=== PATIENT | female | born 1955 | race Caucasian/White ===

== ENCOUNTER 2018-10-19 15:57 | Inpatient (IN) | payer BC, OTHER ==
[2018-10-19] MEDS ORDERED: IPRATROPIUM-ALBUTEROL 3 ML NEB INHALATION STA (16:22)
[2018-10-19] MEDS ORDERED: SODIUM CHLORIDE 0.9% 1,000 ML IV STA (16:22)
[2018-10-19] MEDS ORDERED: methylPREDNISolone SOD SUCCI 125 MG/2 ML VIAL IV STA (16:22)
[2018-10-19] MEDS ORDERED: LEVOFLOXACIN 750MG-D5W PMX 750 MG in DEXTROSE/WATER 1 150ML.BAG IVPB STA ×2 (16:22→18:29)
[2018-10-19 17:14] LABS: Basophils % (A) 0 %; Eosinophils % (A) 0 %; HCT 41.2 % (34.0-46.0); HGB 13.4 gm/dL (11.4-16.0); Lymphocytes # (A) 0.8 k/uL (1.0-4.8); Lymphocytes % (A) 7 %; MCH 31.5 pg (25.0-35.0); MCHC 32.6 g/dL (31.0-37.0); MCV 96.7 fL (80.0-100.0); Mean Platelet Volume 9.1; Monocytes # (A) 0.7 k/uL (0-1.0); Monocytes % (A) 6 %; Neutrophils % (A) 85 %; Platelet Count 157 k/uL (150-450); RBC 4.26 m/uL (3.80-5.40); RDW 13.1 % (11.5-15.5); WBC 10.6 k/uL (3.8-10.6)
[2018-10-19 17:20] LABS: ALT 30 U/L (9-52); AST 20 U/L (14-36); Albumin 3.4 g/dL (3.5-5.0); Alkaline Phosphatase 60 U/L (38-126); Anion Gap 9 mmol/L; Blood Urea Nitrogen 21 mg/dL (7-17); Calcium 8.9 mg/dL (8.4-10.2); Carbon Dioxide 22 mmol/L (22-30); Chloride 106 mmol/L (98-107); Glucose 109 mg/dL (74-99); Magnesium 1.9 mg/dL (1.6-2.3); Potassium 4.1 mmol/L (3.5-5.1); Sodium 137 mmol/L (137-145); Total Bilirubin 0.7 mg/dL (0.2-1.3); Total Protein 6.2 g/dL (6.3-8.2)
[2018-10-19 17:21] LABS: Partial Thromboplastin Time 28.4 sec (22.0-30.0); Prothrombin Time 10.7 sec (9.0-12.0)
--- NOTE | 2018-10-19 17:58 | ED ---
SOB HPI - General Chief Complaint: Shortness of Breath Stated Complaint: poss pneumonia Source: patient, family Mode of arrival: wheelchair Limitations: no limitations - History of Present Illness Initial Comments: This 63-year-old white female presents with a complaint of some shortness of breath. She states that she's had a cough with yellowish production. She apparently had a temperature of 99.8 and the ER but they deny any other fevers. He does have a history of COPD and smokes at least a half a pack a day still. She apparently went to the primary care physician's office and her pulse ox was 78 percent and they sent her to the hospital for further evaluation. Her pulse ox is low at 83% upon arrival. She is denying any chest pain or leg pain. There is no history of DVT or PE. She does relate a previous cardiac history with open heart surgery in 2007. It sounds like she did have a pleural effusion which was drained shortly thereafter. She otherwise denies any known congestive heart failure. She denies any extremity swelling. The shortness of breath is worse with exertion. - Related Data Home Medications Medication Instructions Recorded Confirmed Aspirin 81 mg PO DAILY 11/24/14 10/19/18 Cholecalciferol [Vitamin D3] 400 unit PO DAILY 11/24/14 10/19/18 Lisinopril [Prinivil] 20 mg PO BID 11/24/14 10/19/18 Simvastatin [Zocor] 40 mg PO HS 11/24/14 10/19/18 Carvedilol 25 mg PO BID 10/19/18 10/19/18 amLODIPine [Norvasc] 10 mg PO DAILY 10/19/18 10/19/18 guaiFENesin [Mucinex] 600 mg PO BID PRN 10/19/18 10/19/18 Allergies Allergy/AdvReac Type Severity Reaction Status Date / Time No Known Allergies Allergy Verified 10/19/18 16:40 Review of Systems ROS Statement: Those systems with pertinent positive or pertinent negative responses have been documented in the HPI. ROS Other: All systems not noted in ROS Statement are negative. Past Medical History Past Medical History: Hyperlipidemia, Hypertension, Myocardial Infarction ([place]) Last Myocardial Infarction Date:: 2007 History of Any Multi-Drug Resistant Organisms: None Reported Past Surgical History: Coronary Bypass/CABG Past Anesthesia/Blood Transfusion Reactions: No Reported Reaction Past Psychological History: No Psychological Hx Reported Smoking Status: Current every day smoker Past Alcohol Use History: None Reported Past Drug Use History: None Reported General Exam - General Exam Comments Initial Comments: GENERAL: The patient is well nourished and well hydrated. VITAL SIGNS: Heart rate, blood pressure, respiratory rate reviewed as recorded in nurse's notes. EYES: Pupils are round and reactive. Extraocular movements are intact. No conjunctival / lid redness or swelling. ENT: No external evidence of injury, swelling, or ecchymosis. Airway is patent. Throat is clear. NECK: Nontender. No swelling or evidence of injury. No subcutaneous emphysema. Trachea is midline. No thyroid mass. HEART: Regular rate and rhythm. Good peripheral pulses. LUNGS/CHEST: Wheezing noted bilaterally. No ecchymosis, subcutaneous emphysema, or tenderness. ABDOMEN: Abdomen soft without tenderness. No palpable masses or organomegaly. No peritoneal signs. No abdominal wall swelling or ecchymosis. EXTREMITIES: No extremity tenderness. Normal muscle tone and function. No thoracolumbar tenderness. NEUROLOGIC: Sensation is grossly intact. Cranial nerve exam reveals face is symmetrical, tongue is midline, speech is clear. SKIN: No abrasions or ecchymosis is noted. No induration or masses noted. PSYCHIATRIC: Alert and oriented. Appropriate behavior and judgment. Limitations: no limitations Course Vital Signs 10/19/18 10/19/18 10/19/18 16:09 17:18 17:31 Temperature 99.0 F Pulse Rate 79 73 72 Respiratory 22 22 Rate Blood Pressure 106/69 O2 Sat by Pulse 83 L Oximetry 10/19/18 17:37 Temperature Pulse Rate 76 Respiratory 22 Rate Blood Pressure 145/67 O2 Sat by Pulse 93 L Oximetry Medical Decision Making - Medical Decision Making The patient was seen and examined. All diagnostics were reviewed. An IV is established and she is hydrated. She also receives Levaquin and slight Medrol intravenously. She receives multiple breathing treatments. The EKG shows a normal sinus rhythm at a rate of 73. Premature atrial complexes noted. There is evidence of incomplete left bundle branch block. No acute ST-T wave changes otherwise noted. The LA intervals 150, QRS duration is 108, and the QTC intervals 440. The laboratories reviewed and does show elevation of the BNP consistent with possible congestive heart failure. The white blood cell count is normal. The patient also had a chest x-ray which shows signs of congestive heart failure but they cannot rule out interstitial pneumonia. She receives aspirin, Nitropaste, and Lasix. It is felt as though she likely does have a degree of congestive heart failure. She also likely does have COPD and bronchitis. The case is discussed with and he is agreeable with admission. - Lab Data Result diagrams: 10/19/18 16:47 10/19/18 16:47 Lab Results 10/19/18 10/19/18 10/19/18 Range/Units 16:47 16:47 16:47 WBC 10.6 (3.8-10.6) k/uL RBC 4.26 (3.80-5.40) m/uL Hgb 13.4 (11.4-16.0) gm/dL Hct 41.2 (34.0-46.0) % MCV 96.7 (80.0-100.0) fL MCH 31.5 (25.0-35.0) pg MCHC 32.6 (31.0-37.0) g/dL RDW 13.1 (11.5-15.5) % Plt Count 157 (150-450) k/uL Neutrophils % 85 % Lymphocytes % 7 % Monocytes % 6 % Eosinophils % 0 % Basophils % 0 % Neutrophils # 9.0 H (1.3-7.7) k/uL Lymphocytes # 0.8 L (1.0-4.8) k/uL Monocytes # 0.7 (0-1.0) k/uL Eosinophils # 0.0 (0-0.7) k/uL Basophils # 0.0 (0-0.2) k/uL PT (9.0-12.0) sec INR (<1.2) APTT (22.0-30.0) sec Sodium 137 (137-145) mmol/L Potassium 4.1 (3.5-5.1) mmol/L Chloride 106 (98-107) mmol/L Carbon Dioxide 22 (22-30) mmol/L Anion Gap 9 mmol/L BUN 21 H (7-17) mg/dL Creatinine 0.62 (0.52-1.04) mg/dL Est GFR (CKD-EPI)AfAm >90 (>60 ml/min/1.73 sqM) Est GFR (CKD-EPI)NonAf >90 (>60 ml/min/1.73 sqM) Glucose 109 H (74-99) mg/dL Calcium 8.9 (8.4-10.2) mg/dL Magnesium 1.9 (1.6-2.3) mg/dL Total Bilirubin 0.7 (0.2-1.3) mg/dL AST 20 (14-36) U/L ALT 30 (9-52) U/L Alkaline Phosphatase 60 (38-126) U/L Troponin I (0.000-0.034) ng/mL NT-Pro-B Natriuret Pep 2310 pg/mL Total Protein 6.2 L (6.3-8.2) g/dL Albumin 3.4 L (3.5-5.0) g/dL 10/19/18 10/19/18 Range/Units 16:47 16:47 WBC (3.8-10.6) k/uL RBC (3.80-5.40) m/uL Hgb (11.4-16.0) gm/dL Hct (34.0-46.0) % MCV (80.0-100.0) fL MCH (25.0-35.0) pg MCHC (31.0-37.0) g/dL RDW (11.5-15.5) % Plt Count (150-450) k/uL Neutrophils % % Lymphocytes % % Monocytes % % Eosinophils % % Basophils % % Neutrophils # (1.3-7.7) k/uL Lymphocytes # (1.0-4.8) k/uL Monocytes # (0-1.0) k/uL Eosinophils # (0-0.7) k/uL Basophils # (0-0.2) k/uL PT 10.7 (9.0-12.0) sec INR 1.0 (<1.2) APTT 28.4 (22.0-30.0) sec Sodium (137-145) mmol/L Potassium (3.5-5.1) mmol/L Chloride (98-107) mmol/L Carbon Dioxide (22-30) mmol/L Anion Gap mmol/L BUN (7-17) mg/dL Creatinine (0.52-1.04) mg/dL Est GFR (CKD-EPI)AfAm (>60 ml/min/1.73 sqM) Est GFR (CKD-EPI)NonAf (>60 ml/min/1.73 sqM) Glucose (74-99) mg/dL Calcium (8.4-10.2) mg/dL Magnesium (1.6-2.3) mg/dL Total Bilirubin (0.2-1.3) mg/dL AST (14-36) U/L ALT (9-52) U/L Alkaline Phosphatase (38-126) U/L Troponin I 0.016 (0.000-0.034) ng/mL NT-Pro-B Natriuret Pep pg/mL Total Protein (6.3-8.2) g/dL Albumin (3.5-5.0) g/dL Disposition Clinical Impression: Acute exacerbation of chronic obstructive airways disease, Acute respiratory failure with hypoxia, Dyspnea, Congestive heart failure, Bronchitis Disposition: ADMITTED IP TO THIS HOSP Condition: Fair Is patient prescribed a controlled substance at d/c from ED?: No Time of Disposition: 18:25 Decision Date: 10/19/18 Decision Time: 18:25
--- NOTE | 2018-10-19 18:01 | XR ---
EXAMINATION TYPE: XR chest 2V DATE OF EXAM: 10/19/2018 COMPARISON: 11/01/2011 HISTORY: Short of breath TECHNIQUE: Frontal and lateral views of the chest are obtained. FINDINGS: There is coarsening of the lung markings. Heart is enlarged. There are sternal wires. Ther e is valve prosthesis. Bony thorax is intact. There is mild pulmonary congestion. There is no definit e pleural effusion. IMPRESSION: There is probably new heart failure compared to old exam. Interstitial pneumonia is poss ible.
[2018-10-19] MEDS ORDERED: FUROSEMIDE 10 MG/ML 4 ML VIAL IV STA (18:18)
[2018-10-19] MEDS ORDERED: NITROGLYCERIN OINT 1 INCH/GM PACKET TOPICAL STA (18:19)
[2018-10-19] MEDS ORDERED: ASPIRIN 81 MG PO STA (18:19)
[2018-10-19] MEDS ORDERED: guaiFENesin 600 MG TABLET.ER PO PRN (18:30)
[2018-10-19] MEDS ORDERED: ALBUTEROL NEBULIZED 2.5 MG/3 ML INHALATION STA (18:32)
--- NOTE | 2018-10-19 18:58 | P.HPIM ---
History of Present Illness H&P Date: 10/19/18 Chief Complaint: COPD exacerbation, CHF exacerbation 63-year-old female with PMH of CHF, hypertension, hyperlipidemia presents to the ED for shortness of breath. Patient reports a four-day history of cough productive of yellow sputum, rhinorrhea and nasal congestion along with shortness of breath and wheezing. today she went to her PCP clinic and was noted to have an O2 saturation of 70% prompting staff to send the patient to the ED. Patient reports that the symptoms have been progressively getting worse. Patient states that she is usually able to walk 7 blocks without difficulty but now cannot even walk 4 blocks without stopping to catch her breath. She also complains of midsternal chest pain that is aggravated with deep inspiration. Patient reports 4 day history of nonbloody diarrhea. Of note, patient reports a history of open heart surgery with valve replacement in 2007 at [facility]. Patient reports smoking 10-15 cigarettes daily for the past 55 years. She denies any orthopnea or lower extremity edema. Patient denies any headache, nausea, vomiting, fever, chills, palpitations, changes in urination. No changes in appetite or weight. Patient denies dizziness, numbness/weakness/tingling of the extremities. In the ED, O2 saturation was 83% on room air. CBC was within normal limits. Coagulation panel was negative. CMP showed a BUN of 21, glucose of 109. Troponin was 0.016. BNP was 2310 with the chest x-ray showing probable new heart failure or possible interstitial pneumonia. Patient is admitted for hypoxia, treatment of COPD and CHF exacerbation with pulmonology and cardiology on board. Review of Systems All systems: negative Past Medical History Past Medical History: Hyperlipidemia, Hypertension, Myocardial Infarction ([place]) Last Myocardial Infarction Date:: 2007 History of Any Multi-Drug Resistant Organisms: None Reported Past Surgical History: Coronary Bypass/CABG Past Anesthesia/Blood Transfusion Reactions: No Reported Reaction Past Psychological History: No Psychological Hx Reported Smoking Status: Current every day smoker Past Alcohol Use History: None Reported Past Drug Use History: None Reported Medications and Allergies Home Medications Medication Instructions Recorded Confirmed Type Aspirin 81 mg PO DAILY 11/24/14 10/19/18 History Cholecalciferol [Vitamin D3] 400 unit PO DAILY 11/24/14 10/19/18 History Lisinopril [Prinivil] 20 mg PO BID 11/24/14 10/19/18 History Simvastatin [Zocor] 40 mg PO HS 11/24/14 10/19/18 History Carvedilol 25 mg PO BID 10/19/18 10/19/18 History amLODIPine [Norvasc] 10 mg PO DAILY 10/19/18 10/19/18 History guaiFENesin [Mucinex] 600 mg PO BID PRN 10/19/18 10/19/18 History Allergies Allergy/AdvReac Type Severity Reaction Status Date / Time No Known Allergies Allergy Verified 10/19/18 16:40 Physical Exam Vitals: Vital Signs Temp Pulse Resp BP Pulse Ox 10/19/18 17:37 76 22 145/67 93 L 10/19/18 17:31 72 22 10/19/18 17:18 73 10/19/18 16:09 99.0 F 79 22 106/69 83 L Intake and Output 10/19/18 10/19/18 10/19/18 06:59 14:59 22:59 Other: Weight 68.946 kg General: [non toxic], [no distress], [appears at stated age] Derm: [warm], [dry] Head: [atraumatic], [normocephalic], [symmetric] Eyes: [EOMI], [no lid lag], [anicteric sclera] Mouth: [no lip lesion], [mucus membranes moist] Cardiovascular: [S1S2 reg], [no murmur], [positive posterior tibial pulse bilateral], Lungs: [Diffuse wheezing bilaterally with crackles at the bases] , [no accessory muscle use] Abdominal: [soft], [ nontender to palpation], [no guarding], [no appreciable organomegaly] Ext: [no gross muscle atrophy], [no edema], [no contractures] Neuro: [ CN II-XI grossly intact], [no focal neuro deficits] Psych: [Alert], [oriented], [appropriate affect] Results CBC & Chem 7: 10/19/18 16:47 10/19/18 16:47 Labs: Abnormal Lab Results - Last 24 Hours (Table) 10/19/18 10/19/18 Range/Units 16:47 16:47 Neutrophils # 9.0 H (1.3-7.7) k/uL Lymphocytes # 0.8 L (1.0-4.8) k/uL BUN 21 H (7-17) mg/dL Glucose 109 H (74-99) mg/dL Total Protein 6.2 L (6.3-8.2) g/dL Albumin 3.4 L (3.5-5.0) g/dL Thrombosis Risk Factor Assmnt - Choose All That Apply Any of the Below Risk Factors Present?: Yes Each Factor Represents 1 point: Abnormal pulmonary function (COPD), Obesity (BMI >25) Other Risk Factors: Yes Each Risk Factor Represents 2 Points: Age 61-74 years Thrombosis Risk Factor Assessment Total Risk Factor Score: 4 Thrombosis Risk Factor Assessment Level: Moderate Risk Assessment and Plan Assessment: Assessment and Plan 1. COPD exacerbation 2. CHF exacerbation 3. Chest pain 4. Hypertension 5. Hyperlipidemia 6. DVT prophylaxis 1. Never been diagnosed. Start DuoNeb 4 times a day scheduled and as needed for shortness of breath and wheezing. Continue Solu-Medrol 60 mg IV every 6 hours. O2 per nasal cannula to maintain an O2 saturation greater than 92%. Started on levofloxacin IV for concerns of pneumonia. Will follow pulmonology consult. Follow influenza PCR. 2. Patient reports seeing Dr. Saha for CHF. She does not know her EF. BNP 2310 with chest x-ray showing concerns for CHF. Start diuresis with Lasix 40 mg IV twice a day. Start Coreg and lisinopril.strict intake and output take. Daily weights. telemetry monitoring. Follow echocardiogram results. Follow cardiology consultation. 3. Pleuritic in nature, likely not ACS. Troponin 0.016. Trend 2 Trop/EKG to rule out ACS. Telemetry monitoring. Follow cardiology consultation. 4. BP 145/67. Continue Coreg 25 mg by mouth twice a day. Continue lisinopril 20 mg by mouth twice a day. Monitor vitals, adjust medications as necessary. 5. Continue Simvastatin. 6. Lovenox. Patient admitted for dyspnea. Concerns for CHF and COPD exacerbation. Pulmonology and Cardiology consulted.
[2018-10-19] MEDS: IPRATROPIUM-ALBUTEROL 3 ML NEB INHALATION SCH (21:38)
[2018-10-19] MEDS: ENOXAPARIN 40 MG/0.4 ML SYRINGE SQ SCH (23:19)
[2018-10-19] MEDS: ATORVASTATIN 20 MG TAB PO SCH (23:27)
[2018-10-19] MEDS: NITROGLYCERIN OINT 1 INCH/GM PACKET TOPICAL SCH (23:28)
[2018-10-19] MEDS: LISINOPRIL 20 MG TAB PO SCH (23:28)
[2018-10-19] MEDS: CARVEDILOL 12.5 MG TAB PO SCH (23:28)
[2018-10-19] MEDS: methylPREDNISolone SOD SUCCI 125 MG/2 ML VIAL IV SCH (23:29)
[2018-10-20] MEDS: IPRATROPIUM-ALBUTEROL 3 ML NEB INHALATION SCH ×7 (00:08→23:11)
[2018-10-20 00:11] VITALS: BMI 27.0
[2018-10-20 04:59] LABS: HCT 38.6 % (34.0-46.0); HGB 12.8 gm/dL (11.4-16.0); MCH 32.1 pg (25.0-35.0); MCHC 33.2 g/dL (31.0-37.0); MCV 96.7 fL (80.0-100.0); Mean Platelet Volume 8.8; Platelet Count 151 k/uL (150-450); RDW 13.3 % (11.5-15.5); WBC 7.8 k/uL (3.8-10.6)
[2018-10-20 05:16] LABS: Anion Gap 7 mmol/L; Blood Urea Nitrogen 31 mg/dL (7-17); Carbon Dioxide 21 mmol/L (22-30); Chloride 108 mmol/L (98-107); Glucose 150 mg/dL (74-99); Magnesium 2.1 mg/dL (1.6-2.3); Potassium 4.1 mmol/L (3.5-5.1); Sodium 136 mmol/L (137-145)
[2018-10-20] MEDS ORDERED: FUROSEMIDE 10 MG/ML 4 ML VIAL IV SCH (06:00)
[2018-10-20 06:06] LABS: Glucose,Whole Blood 141 mg/dL (75-99)
[2018-10-20] MEDS: methylPREDNISolone SOD SUCCI 125 MG/2 ML VIAL IV SCH ×4 (06:25→23:06)
[2018-10-20] MEDS: CARVEDILOL 12.5 MG TAB PO SCH ×2 (06:25→20:12)
--- NOTE | 2018-10-20 08:55 | P.CRDCN ---
History of Present Illness History of present illness: This is Dr. Saha dictating a consult on this patient The patient was interviewed and examined by me IMPRESSION / ASSESSMENT: 63-year-old female presenting with cough shortness of breath and bronchitis-like symptoms Experienced chest discomfort while pushing her luggage cart Normal troponins No definite ECG changes Current smoker Hypertension Dyslipidemia PLAN: Twelve-lead ECG Treat bronchitis Obtain last stress test from the office Smoking cessation HPI Patient presented with increasing cough expectoration shortness of breath She had chest discomfort while pushing her luggage cart but without any ECG changes and 3 normal troponins She's had a workup for coronary artery disease in the office and I will get the reports ROS: No fever chills or rigors, no cough, phlegm or expectoration, no nausea, vomiting or diarrhea, no hematuria, dysuria, no musculoskeletal complaints, no strokes or seizures, no skin lesions. EXAMINATION: Blood pressure 99/55 milligrams of mercury pulse rate in the 70s and 60s afebrile Breath sounds are reduced bilaterally with rhonchorous breath sounds bilaterally some crackles at both bases with reduced breath sounds bilaterally Normal heart sounds S1 and S2 are soft no murmurs Abdomen soft Extremities warm no edema She appears a little short of breath REVIEW OF LABS, ECG & MEDICAL DATA Hematocrit 38.6, alert lites normal, BUN 31, creatinine 0.78 Normal troponins TSH 0.99 Past Medical History Past Medical History: Heart Failure, COPD, Hyperlipidemia, Hypertension, Myocardial Infarction ([place]) Last Myocardial Infarction Date:: 2007 History of Any Multi-Drug Resistant Organisms: None Reported Past Surgical History: Coronary Bypass/CABG Past Anesthesia/Blood Transfusion Reactions: No Reported Reaction Past Psychological History: No Psychological Hx Reported Smoking Status: Current every day smoker Past Alcohol Use History: None Reported Past Drug Use History: None Reported Medications and Allergies Home Medications Medication Instructions Recorded Confirmed Type Aspirin 81 mg PO DAILY 11/24/14 10/19/18 History Cholecalciferol [Vitamin D3] 400 unit PO DAILY 11/24/14 10/19/18 History Lisinopril [Prinivil] 20 mg PO BID 11/24/14 10/19/18 History Simvastatin [Zocor] 40 mg PO HS 11/24/14 10/19/18 History Carvedilol 25 mg PO BID 10/19/18 10/19/18 History amLODIPine [Norvasc] 10 mg PO DAILY 10/19/18 10/19/18 History guaiFENesin [Mucinex] 600 mg PO BID PRN 10/19/18 10/19/18 History Allergies Allergy/AdvReac Type Severity Reaction Status Date / Time No Known Allergies Allergy Verified 10/19/18 16:40 Physical Exam Vitals: Vital Signs Temp Pulse Pulse Resp BP BP Pulse Ox 10/20/18 08:37 66 10/20/18 08:26 70 10/20/18 04:00 97.6 F 57 L 18 99/55 92 L 10/20/18 00:25 68 10/20/18 00:09 68 10/20/18 00:00 97.9 F 69 18 115/56 94 L 10/19/18 23:17 98.1 F 70 16 122/55 94 L 10/19/18 23:00 95 10/19/18 20:24 75 10/19/18 20:16 74 10/19/18 19:08 97.5 F L 75 22 144/91 95 10/19/18 17:37 76 22 145/67 93 L 10/19/18 17:31 72 22 10/19/18 17:18 73 10/19/18 16:09 99.0 F 79 22 106/69 83 L Intake and Output 10/19/18 10/20/18 10/20/18 22:59 06:59 14:59 Output Total 550 250 300 Balance -550 -250 -300 Output: Urine 550 250 300 Other: Weight 68.946 kg 67.1 kg Results 10/20/18 04:23 10/20/18 04:23 Cardiac Enzymes 10/19/18 10/19/18 10/19/18 Range/Units 16:47 16:47 22:46 AST 20 (14-36) U/L Troponin I 0.016 0.012 (0.000-0.034) ng/mL 10/20/18 Range/Units 04:23 AST (14-36) U/L Troponin I <0.012 (0.000-0.034) ng/mL Coagulation 10/19/18 Range/Units 16:47 PT 10.7 (9.0-12.0) sec APTT 28.4 (22.0-30.0) sec CBC 04/02/19 04/03/19 Range/Units 16:47 04:23 WBC 10.6 7.8 (3.8-10.6) k/uL RBC 4.26 4.00 (3.80-5.40) m/uL Hgb 13.4 12.8 (11.4-16.0) gm/dL Hct 41.2 38.6 (34.0-46.0) % Plt Count 157 151 (150-450) k/uL Comprehensive Metabolic Panel 10/19/18 10/20/18 Range/Units 16:47 04:23 Sodium 137 136 L (137-145) mmol/L Potassium 4.1 4.1 (3.5-5.1) mmol/L Chloride 106 108 H (98-107) mmol/L Carbon Dioxide 22 21 L (22-30) mmol/L BUN 21 H 31 H (7-17) mg/dL Creatinine 0.62 0.78 (0.52-1.04) mg/dL Glucose 109 H 150 H (74-99) mg/dL Calcium 8.9 9.0 (8.4-10.2) mg/dL AST 20 (14-36) U/L ALT 30 (9-52) U/L Alkaline Phosphatase 60 (38-126) U/L Total Protein 6.2 L (6.3-8.2) g/dL Albumin 3.4 L (3.5-5.0) g/dL Current Medications Generic Name Dose Route Start Last Admin Trade Name Freq PRN Reason Stop Dose Admin Albuterol/Ipratropium 3 ml 10/19/18 20:00 10/20/18 08:24 Duoneb 0.5 Mg-3 Mg/3 Ml Soln INHALATION 3 ml RT-Q4H [facility] Administration Amlodipine Besylate 10 mg 10/20/18 09:00 Norvasc PO DAILY [facility] Aspirin 81 mg 10/20/18 09:00 Aspirin PO DAILY [facility] Atorvastatin Calcium 20 mg 10/19/18 21:00 10/19/18 23:27 Lipitor PO 20 mg HS [facility] Administration Carvedilol 25 mg 10/19/18 21:00 10/20/18 06:25 Coreg PO 25 mg BID-W/MEALS [facility] Administration Cholecalciferol 400 unit 10/20/18 12:00 Vitamin D3 PO DAILY@1200 [facility] Enoxaparin Sodium 40 mg 10/19/18 18:30 10/19/18 23:19 Lovenox SQ Not Given DAILY [facility] Guaifenesin 600 mg 10/19/18 18:30 10/20/18 00:18 Mucinex PO 600 mg BID PRN Administration Cold/Congestion Lisinopril 20 mg 10/19/18 21:00 10/19/18 23:28 Zestril PO 20 mg BID BRANDON Administration Methylprednisolone Sodium Succinate 60 mg 10/20/18 00:00 10/20/18 06:25 Solu-Medrol IV 60 mg Q6HR [facility] Administration Nitroglycerin 1 inch 10/19/18 22:00 10/19/18 23:28 Nitro-Bid Oint TOPICAL 1 inch QID [facility] Administration Intake and Output 10/19/18 10/20/18 10/20/18 22:59 06:59 14:59 Output Total 550 250 300 Balance -550 -250 -300 Output: Urine 550 250 300 Other: Weight 68.946 kg 67.1 kg 10/20/18 04:23 10/20/18 04:23
[2018-10-20] MEDS ORDERED: ASPIRIN 325 MG TAB PO SCH (09:00)
[2018-10-20] MEDS: LISINOPRIL 20 MG TAB PO SCH ×2 (09:46→20:27)
[2018-10-20] MEDS: ENOXAPARIN 40 MG/0.4 ML SYRINGE SQ SCH (09:46)
[2018-10-20] MEDS: ASPIRIN 81 MG PO SCH (09:46)
[2018-10-20] MEDS: amLODIPine 10 MG TAB PO SCH (09:47)
[2018-10-20] MEDS: NITROGLYCERIN OINT 1 INCH/GM PACKET TOPICAL SCH ×4 (09:47→20:12)
--- NOTE | 2018-10-20 11:11 | ECHOF ---
Referral Reason:Heart Failure MEASUREMENTS -------- HEIGHT: 157.5 cm WEIGHT: 66.7 kg BP: IVSd: 1.4 cm (0.6 - 1.1) LVIDd: 3.8 cm (3.9 - 5.3) LVPWd: 1.3 cm (0.6 - 1.1) IVSs: 1.5 cm LVIDs: 3.4 cm LVPWs: 1.6 cm LA Diam: 5.1 cm (2.7 - 3.8) LAESV Index (A-L): 51.71 ml/m MV EXCURSION: 16.659 mm (> 18.000) MV EF SLOPE: 38 mm/s (70 - 150) EPSS: 0.3 cm MV E Brennan: 1.29 m/s MV DecT: 336 ms MV A Brennan: 1.13 m/s MV E/A Ratio: 1.14 RAP: 5.00 mmHg RVSP: 33.03 mmHg FINDINGS -------- Sinus rhythm. This was a technically adequate study. The left ventricular size is normal. There is moderate concentric left ventricular hypertrophy. O verall left ventricular systolic function is mildly impaired with, an EF between 45 - 50 %. Inferio r basal Hypokinesis Basal septal hypokinesis The right ventricle is normal in size. The left atrial size is normal. The right atrial size is normal. There is mild aortic valve sclerosis. There is no evidence of aortic regurgitation. Mild mitral annular calcification present. Mild mitral regurgitation is present. Mild tricuspid regurgitation present. There is no evidence of pulmonary hypertension. The right v entricular systolic pressure, as measured by Doppler, is 33.03mmHg. There is no pulmonic regurgitation present. The aortic root size is normal. There is no pericardial effusion. CONCLUSIONS -------- 1. The left ventricular size is normal. 2. There is moderate concentric left ventricular hypertrophy. 3. Overall left ventricular systolic function is mildly impaired with, an EF between 45 - 50 %. 4. Inferior basal Hypokinesis 5. Basal septal hypokinesis 6. The right ventricle is normal in size. 7. The left atrial size is normal. 8. The right atrial size is normal. 9. There is mild aortic valve sclerosis. 10. Mild mitral annular calcification present. 11. Mild mitral regurgitation is present. 12. Mild tricuspid regurgitation present. 13. There is no evidence of pulmonary hypertension. 14. The right ventricular systolic pressure, as measured by Doppler, is 33.03mmHg. 15. There is no pulmonic regurgitation present. 16. The aortic root size is normal. 17. There is no pericardial effusion. STRATEGIC ANALYST: Viviane Hudson RDCS
[2018-10-20 12:10] LABS: Glucose,Whole Blood 139 mg/dL (75-99)
[2018-10-20] MEDS: CHOLECALCIFEROL 400 UNIT TAB PO SCH (12:24)
--- NOTE | 2018-10-20 13:46 | P.PN ---
Subjective Progress Note Date: 10/20/18 Principal diagnosis: COPD exacerbation, CHF exacerbation Patient was seen and examined. No acute events overnight. Patient reports great improvement in her breathing since admission. States that she is 75% back to baseline. She denies any chest pain or palpitations. No nausea or vomiting. No fever or chills. Objective - Vital Signs Vital signs: Vital Signs Temp 97.3 F L 10/20/18 08:30 Pulse 68 10/20/18 12:03 Resp 18 10/20/18 08:30 BP 103/63 10/20/18 08:30 Pulse Ox 97 10/20/18 08:30 Intake & Output 10/19/18 10/20/18 10/20/18 18:59 06:59 18:59 Output Total 800 300 Balance -800 -300 Weight 68.946 kg 67.1 kg Output: Urine 800 300 - Exam General: [non toxic], [no distress], [appears at stated age] Derm: [warm], [dry] Head: [atraumatic], [normocephalic], [symmetric] Eyes: [EOMI], [no lid lag], [anicteric sclera] Mouth: [no lip lesion], [mucus membranes moist] Cardiovascular: [S1S2 reg], [no murmur], [positive posterior tibial pulse bilateral], Lungs: [Diffuse wheezing bilaterally with crackles at the bases, improved from yesterday] , [no accessory muscle use] Abdominal: [soft], [ nontender to palpation], [no guarding], [no appreciable organomegaly] Ext: [no gross muscle atrophy], [no edema], [no contractures] Neuro: [no focal neuro deficits] Psych: [Alert], [oriented], [appropriate affect] - Labs CBC & Chem 7: 10/20/18 04:23 10/20/18 04:23 Labs: Abnormal Lab Results - Last 24 Hours (Table) 10/19/18 10/19/18 10/20/18 Range/Units 16:47 16:47 04:23 Neutrophils # 9.0 H (1.3-7.7) k/uL Lymphocytes # 0.8 L (1.0-4.8) k/uL Sodium 136 L (137-145) mmol/L Chloride 108 H (98-107) mmol/L Carbon Dioxide 21 L (22-30) mmol/L BUN 21 H 31 H (7-17) mg/dL Glucose 109 H 150 H (74-99) mg/dL POC Glucose (mg/dL) (75-99) mg/dL Total Protein 6.2 L (6.3-8.2) g/dL Albumin 3.4 L (3.5-5.0) g/dL 10/20/18 10/20/18 Range/Units 06:04 11:57 Neutrophils # (1.3-7.7) k/uL Lymphocytes # (1.0-4.8) k/uL Sodium (137-145) mmol/L Chloride (98-107) mmol/L Carbon Dioxide (22-30) mmol/L BUN (7-17) mg/dL Glucose (74-99) mg/dL POC Glucose (mg/dL) 141 H 139 H (75-99) mg/dL Total Protein (6.3-8.2) g/dL Albumin (3.5-5.0) g/dL Assessment and Plan Assessment: Assessment and Plan 1. COPD exacerbation 2. CHF exacerbation 3. Chest pain 4. Hypertension 5. Hyperlipidemia 6. DVT prophylaxis 1. Never been diagnosed. Start DuoNeb 4 times a day scheduled and as needed for shortness of breath and wheezing. Continue Solu-Medrol 60 mg IV every 6 hours. O2 per nasal cannula to maintain an O2 saturation greater than 92%. Started on levofloxacin IV for concerns of pneumonia. Will follow pulmonology consult. Influenza PCR negative. 2. Patient reports seeing Dr. Saha for CHF. She does not know her EF. BNP 2310 with chest x-ray showing concerns for CHF. Start diuresis with Lasix 40 mg IV twice a day. Start Coreg and lisinopril. Strict intake and output take. May ly weights. telemetry monitoring. Echocardiogram shows EF 45-50% with hypokinetic wall motion. Cardiology consulted, recent outpatient stress done, will obtain records. 3. Pleuritic in nature, likely not ACS. Troponin 0.016, 0.012, less than 0.012 with EKG showing sinus rhythm with PAC. ACS ruled out. Telemetry monitoring. Follow cardiology consultation. 4. BP 122/55. Continue Coreg 25 mg by mouth twice a day. Continue lisinopril 20 mg by mouth twice a day. Monitor vitals, adjust medications as necessary. 5. Continue Simvastatin. 6. Lovenox. Patient admitted for dyspnea. Concerns for CHF and COPD exacerbation. Pulmonology and Cardiology consulted. Patient is pending clinical improvement. Likely DC in 1-2 days.
--- NOTE | 2018-10-20 15:41 | XR ---
EXAMINATION TYPE: XR chest 2V DATE OF EXAM: 10/20/2018 COMPARISON: Prior chest x-ray 10/19/2018 HISTORY: Shortness of breath TECHNIQUE: Frontal and lateral views of the chest are obtained. FINDINGS: Patient is post median sternotomy and mitral valve replacement. The heart is enlarged. Int erstitium is increased. Strand-like areas of increased attenuation may reflect atelectatic changes or scarring. Aorta is dense. There may be pleural calcifications present. Pulmonary vascularity and hil a not significantly changed. No evident pneumothorax or pleural effusion. There are overlying cardiac leads. IMPRESSION: Suspect some improvement in aeration as compared to prior exam. Possible pleural calcifi cation, cannot exclude upper lobe mass on the right. Additional follow-up recommended.
[2018-10-20 16:34] LABS: Glucose,Whole Blood 156 mg/dL (75-99)
[2018-10-20] MEDS: ATORVASTATIN 20 MG TAB PO SCH (20:27)
[2018-10-20 20:49] LABS: Glucose,Whole Blood 196 mg/dL (75-99)
[2018-10-20] MEDS: INSULIN ASPART (NovoLOG) 100 UNIT/ML VIAL SQ SCH (21:26)
[2018-10-21] MEDS: IPRATROPIUM-ALBUTEROL 3 ML NEB INHALATION SCH ×4 (03:24→15:52)
[2018-10-21 05:56] LABS: Glucose,Whole Blood 176 mg/dL (75-99)
[2018-10-21] MEDS: methylPREDNISolone SOD SUCCI 125 MG/2 ML VIAL IV SCH ×2 (06:16→11:29)
[2018-10-21] MEDS: INSULIN ASPART (NovoLOG) 100 UNIT/ML VIAL SQ SCH ×2 (06:16→12:15)
[2018-10-21] MEDS: CARVEDILOL 12.5 MG TAB PO SCH (06:16)
[2018-10-21 07:54] VITALS: TEMP 97.8
[2018-10-21] MEDS: LISINOPRIL 20 MG TAB PO SCH (09:04)
[2018-10-21] MEDS: amLODIPine 10 MG TAB PO SCH (09:04)
[2018-10-21] MEDS: ASPIRIN 81 MG PO SCH (09:04)
[2018-10-21] MEDS: ENOXAPARIN 40 MG/0.4 ML SYRINGE SQ SCH (09:07)
[2018-10-21] MEDS: NITROGLYCERIN OINT 1 INCH/GM PACKET TOPICAL SCH ×2 (09:14→12:36)
[2018-10-21 11:27] LABS: Glucose,Whole Blood 144 mg/dL (75-99)
[2018-10-21] MEDS: CHOLECALCIFEROL 400 UNIT TAB PO SCH (11:40)
[2018-10-21 12:07] VITALS: BP 106/55; PULSE 80
[2018-10-21 12:50] VITALS: RESP 18
--- NOTE | 2018-10-21 14:08 | P.DS ---
Providers Date of admission: 10/19/18 18:25 Expected date of discharge: 10/21/18 Attending physician: Peterson Dowell MD Consults: 10/19/18 18:25 Consult Physician Routine Consulting Provider: Cody Dick Consult Reason/Comments: chf Do you want consulting provider notified?: Yes Primary care physician: Ander Tobar [facility] Course: 63-year-old female with PMH of CHF, hypertension, hyperlipidemia presents to the ED for shortness of breath. Patient reports a four-day history of cough productive of yellow sputum, rhinorrhea and nasal congestion along with shortness of breath and wheezing. today she went to her PCP clinic and was noted to have an O2 saturation of 70% prompting staff to send the patient to the ED. Patient reports that the symptoms have been progressively getting worse. Patient states that she is usually able to walk 7 blocks without difficulty but now cannot even walk 4 blocks without stopping to catch her breath. She also complains of midsternal chest pain that is aggravated with deep inspiration. Patient reports 4 day history of nonbloody diarrhea. Of note, patient reports a history of open heart surgery with valve replacement in 2007 at [facility]. Patient reports smoking 10-15 cigarettes daily for the past 55 years. She denies any orthopnea or lower extremity edema. Patient denies any headache, nausea, vomiting, fever, chills, palpitations, changes in urination. No changes in appetite or weight. Patient denies dizziness, numbness/weakness/tingling of the extremities. In the ED, O2 saturation was 83% on room air. CBC was within normal limits. Coagulation panel was negative. CMP showed a BUN of 21, glucose of 109. Troponin was 0.016. BNP was 2310 with the chest x-ray showing probable new heart failure or possible interstitial pneumonia. Patient is admitted for hypoxia, treatment of COPD and CHF exacerbation with pulmonology and cardiology on board. with regard to her COPD exacerbation, patient was started on DuoNeb 4 times a day scheduled and as needed for shortness of breath and wheezing. She was initially started on Solu-Medrol IV which was transitioned to prednisone on discharge. She was given O2 per nasal cannula to maintain O2 saturation greater than 92%. There is initial concerns for pneumonia for which she was started on levofloxacin IV. Influenza PCR was negative. There was also some concerns for CHF that was seen on chest x-ray. BNP was 2310 with chest x-ray showing concerns for CHF. She was initially diuresed with Lasix 40 mg IV twice a day. Her home medications of Coreg and lisinopril was resumed. Echocardiogram was done which showed an EF of 45-50% with some hypokinetic wall motion. patient had chest pain which was pleuritic in nature. Her troponin was 0.016, 0.012, less than 0.012 with EKG showing sinus rhythm with PACs. Acute coronary syndrome was ruled out. Cardiology was consulted and recommended obtaining her last stress test. It was reported that the patient had a history of mitral valve repair and CABG to the proximal and distal LAD, saphenous vein graft to the intermediate coronary artery and saphenous vein graft to the RCA in 2007. Patient was seen and examined prior to discharge. No acute events overnight. Patient reports complete resolution of her dyspnea. Patient states that her breathing is back to baseline. She continues to complain of cough but now it is dry in nature. She denies any chest pain, shortness of breath or palpitations. She denies any dizziness, nausea or vomiting, fever or chills. Patient is requesting to go home today. General: [non toxic], [no distress], [appears at stated age] Derm: [warm], [dry] Head: [atraumatic], [normocephalic], [symmetric] Eyes: [EOMI], [no lid lag], [anicteric sclera] Mouth: [no lip lesion], [mucus membranes moist] Cardiovascular: [S1S2 reg], [no murmur], [positive posterior tibial pulse bilateral], Lungs: [clear to auscultation bilaterally with scattered mild end expiratory wheezes, improved from yesterday] , [no accessory muscle use] Abdominal: [soft], [ nontender to palpation], [no guarding], [no appreciable organomegaly] Ext: [no gross muscle atrophy], [no edema], [no contractures] Neuro: [no focal neuro deficits] Psych: [Alert], [oriented], [appropriate affect] Assessment and Plan 1. COPD exacerbation 2. CHF exacerbation 3. Chest pain 4. Hypertension 5. Hyperlipidemia 6. DVT prophylaxis 1. Never been diagnosed. Start DuoNeb 4 times a day scheduled and as needed for shortness of breath and wheezing. Transition Solu-Medrol to Predisone by mouth. O2 per nasal cannula to maintain an O2 saturation greater than 92%. Started on levofloxacin IV for concerns of pneumonia. Will follow pulmonology consult. Influenza PCR negative. 6 minute walk test pending. 2. Patient reports seeing Dr. Saha for CHF. She does not know her EF. BNP 2310 with chest x-ray showing concerns for CHF. Transition from Lasix IV to by mouth. Start Coreg and lisinopril. Strict intake and output take. Daily weights. telemetry monitoring. Echocardiogram shows EF 45-50% with hypokinetic wall motion. Cardiology consulted, recent outpatient stress done, will obtain records. 3. Pleuritic in nature, likely not ACS. Troponin 0.016, 0.012, less than 0.012 with EKG showing sinus rhythm with PAC. ACS ruled out. Telemetry monitoring. Follow cardiology consultation. 4. BP 106/55. Continue Coreg 25 mg by mouth twice a day. Continue lisinopril 20 mg by mouth twice a day. Monitor vitals, adjust medications as necessary. 5. Continue Simvastatin. 6. Lovenox. Patient admitted for dyspnea. Concerns for CHF and COPD exacerbation. Pulmonology and Cardiology consulted. DC today with close follow-up with pulmonology and cardiology. This complex discharge took greater than 30 minutes. Pertinent Studies: chest x-ray, echocardiogram Patient Condition at Discharge: Fair Plan - Discharge Summary Discharge Rx Participant: No New Discharge Prescriptions: New Aspirin 81 mg PO DAILY chew Furosemide [Lasix] 40 mg PO DAILY #30 tablet predniSONE 50 mg PO DAILY #3 tab Continue Cholecalciferol [Vitamin D3] 400 unit PO DAILY Simvastatin [Zocor] 40 mg PO HS Aspirin 81 mg PO DAILY Lisinopril [Prinivil] 20 mg PO BID amLODIPine [Norvasc] 10 mg PO DAILY Carvedilol 25 mg PO BID guaiFENesin [Mucinex] 600 mg PO BID PRN PRN Reason: Gi Upset Discharge Medication List Aspirin 81 mg PO DAILY 11/24/14 [History] Cholecalciferol [Vitamin D3] 400 unit PO DAILY 11/24/14 [History] Lisinopril [Prinivil] 20 mg PO BID 11/24/14 [History] Simvastatin [Zocor] 40 mg PO HS 11/24/14 [History] Carvedilol 25 mg PO BID 10/19/18 [History] amLODIPine [Norvasc] 10 mg PO DAILY 10/19/18 [History] guaiFENesin [Mucinex] 600 mg PO BID PRN 10/19/18 [History] Aspirin 81 mg PO DAILY chew 10/21/18 [Rx] Furosemide [Lasix] 40 mg PO DAILY #30 tablet 10/21/18 [Rx] predniSONE 50 mg PO DAILY #3 tab 10/21/18 [Rx] Follow up Appointment(s)/Referral(s): [facility] [Provider Group] - 1 Week Ander Pacheco MD [Primary Care Provider] - 10/27/18 1:15 pm (Thursday) Aron Benoit DO [Doctor of Osteopathic Medicine] - 1 Week Cody Dick MD [STAFF PHYSICIAN] - 1 Week Activity/Diet/Wound Care/Special Instructions: follow-up with PCP within 1-2 days of discharge. Take all medications as advised. Follow-up with pulmonology with in 1 week of discharge. Follow-up with cardiology within 1 week of discharge. Discharge Disposition: HOME SELF-CARE
--- NOTE | 2018-10-22 09:57 | CDI ---
Documentation Clarification Form Date: 10/22/2018 From: Melissa Reginald Danica Curtis, [employer] Hours-8:30 am & 5 pm MLeo Admit Date: 10/19/2018 6:25:00 PM Patient Name: Cristel Arenas Visit Number: [id number] Discharge Date: 10/21/2018 4:00:00 PM ATTENTION: The Clinical Documentation Specialists (CDI) and [facility] Coding Staff appreciate your assistance in clarifying documentation. Please respond to the clarification below the line at the bottom and electronically sign. The CDI & [facility] Coding staff will review the response and follow-up if needed. Please note: Queries are made part of the Legal Health Record. If you have any questions, please contact the author of this message via ITS. Dr. Alexander Saha CHF/heart failure are documented in the H&P,Your consult (under Past medical history), ED note, prg notes, and Dischrg Summary. History/Risk Factors: COPD, CAD, hx IN, CABG, heart valve prosthesis Clinical Indicators: SOB is worse on exertion VS/Pulse OX: P-79, R-22, BP-106/69, O2 sat-83 BNP: 2310 Echocardiogram Results: left ventricular systolic function is mildly impaired, EF between 45-50% Chest X Ray: There is probably new heart failure compared to old exam. Treatment: 4/2- IV Lasix 40 mg once, 4/3-IV Lasix 40 mg Q 12H, DC'd - Lasix 40 mg po daily In your professional opinion, can you please clarify the acuity and type of CHF if known? TYPE Systolic Heart Failure Diastolic Heart Failure Systolic & Diastolic Heart Failure ACUITY Acute Chronic Acute on Chronic Heart Failure Unable to Determine Other, please specify MTDD
== END 2018-10-21 16:00 | disposition home or self-care (01) | DRG 190 ==
LOC: EC 15:57 → 3SCARD 18:25
PROVIDERS: ADMIT Family Medicine; ATTEND Family Medicine
DX: J44.1 Chronic obstructive pulmonary disease with (acute) exacerbation (principal); J96.01 Acute respiratory failure with hypoxia; I50.22 Chronic systolic (congestive) heart failure; I11.0 Hypertensive heart disease with heart failure; I44.7 Left bundle-branch block, unspecified; I49.1 Atrial premature depolarization; E78.5 Hyperlipidemia, unspecified; I25.10 Atherosclerotic heart disease of native coronary artery without angina pectoris; I34.0 Nonrheumatic mitral (valve) insufficiency; I25.2 Old myocardial infarction; F17.210 Nicotine dependence, cigarettes, uncomplicated; Z71.6 Tobacco abuse counseling; Z79.82 Long term (current) use of aspirin; Z79.899 Other long term (current) drug therapy; Z95.2 Presence of prosthetic heart valve; Z95.1 Presence of aortocoronary bypass graft
CPT/HCPCS: 36415; 71046; 80048; 80053; 83735; 83880; 84443; 84484; 85025; 85027; 85610; 85730; 87040; 87502; 93005; 93306; 94640; 94760; 96365; 96375; 99285

== ENCOUNTER 2019-08-28 11:06 | Inpatient (IN) | payer BC ==
[2019-08-28] MEDS ORDERED: SODIUM CHLORIDE 0.9% 500 ML 500 ML IV STA (11:20)
--- NOTE | 2019-08-28 11:23 | ED ---
General Adult HPI - General Chief complaint: Neuro Symptoms/Deficit Stated complaint: rt leg numbness, neuro issues Time Seen by Provider: 08/28/19 11:13 Source: patient, RN notes reviewed, old records reviewed Mode of arrival: ambulatory Limitations: no limitations - History of Present Illness Initial comments: 64-year-old female presenting with 1 hour history of right leg weakness and numbness. Patient states that at approximately 10:15 AM she developed weakness, lacrimation and numbness in her right leg. She had taken an aspirin at home and waited approximately 30 minutes with some improvement in symptoms prior to deciding to come to the emergency department. She states for the past 2 days she's been somewhat dizzy. No headache. No chest pain. No focal numbness or weakness until 1 hour prior to arrival. She states the symptoms have nearly completely resolved and she feels some residual numbness in this leg. She is a current smoker, history of CAD currently on lisinopril, Coreg, and Zocor, she has been prescribed an aspirin but takes this sporadically. No abdominal pain. No cough. No dyspnea. No chest pain. - Related Data Home Medications Medication Instructions Recorded Confirmed Aspirin 81 mg PO DAILY 11/24/14 10/19/18 Cholecalciferol [Vitamin D3] 400 unit PO DAILY 11/24/14 10/19/18 Lisinopril [Prinivil] 20 mg PO BID 11/24/14 10/19/18 Simvastatin [Zocor] 40 mg PO HS 11/24/14 10/19/18 Carvedilol 25 mg PO BID 10/19/18 10/19/18 amLODIPine [Norvasc] 10 mg PO DAILY 10/19/18 10/19/18 guaiFENesin [Mucinex] 600 mg PO BID PRN 10/19/18 10/19/18 Previous Rx's Medication Instructions Recorded Aspirin 81 mg PO DAILY chew 10/21/18 Furosemide [Lasix] 40 mg PO DAILY #30 tablet 10/21/18 predniSONE 50 mg PO DAILY #3 tab 10/21/18 Allergies Allergy/AdvReac Type Severity Reaction Status Date / Time No Known Allergies Allergy Verified 08/28/19 11:12 Review of Systems ROS Statement: Those systems with pertinent positive or pertinent negative responses have been documented in the HPI. ROS Other: All systems not noted in ROS Statement are negative. Past Medical History Past Medical History: Heart Failure, COPD, Hyperlipidemia, Hypertension, Myocardial Infarction (CT) Last Myocardial Infarction Date:: 2007 History of Any Multi-Drug Resistant Organisms: None Reported Past Surgical History: Coronary Bypass/CABG Past Anesthesia/Blood Transfusion Reactions: No Reported Reaction Past Psychological History: No Psychological Hx Reported Smoking Status: Current every day smoker Past Alcohol Use History: None Reported Past Drug Use History: None Reported General Exam Limitations: no limitations General appearance: alert, in no apparent distress Head exam: Present: atraumatic, normocephalic Eye exam: Present: normal appearance, PERRL ENT exam: Present: normal exam Neck exam: Present: normal inspection. Absent: tenderness, meningismus Respiratory exam: Present: normal lung sounds bilaterally. Absent: respiratory distress, wheezes Cardiovascular Exam: Present: regular rate, normal rhythm GI/Abdominal exam: Present: soft. Absent: distended, tenderness, guarding Extremities exam: Present: normal inspection, normal capillary refill, other (Distal pulses 2+, symmetric). Absent: pedal edema Neurological exam: Present: alert, oriented X3, CN II-XII intact, normal gait, motor sensory deficit (Slight drift in the right lower extremity, decreased sensation, NIH of 2) Psychiatric exam: Present: normal affect, normal mood Skin exam: Present: warm, dry, intact. Absent: cyanosis, diaphoretic Course Vital Signs 08/28/19 08/28/19 08/28/19 11:09 11:24 11:40 Temperature 97.6 F 97.6 F 97.6 F Pulse Rate 53 L 55 L 53 L Respiratory 18 18 18 Rate Blood Pressure 142/71 142/71 113/65 O2 Sat by Pulse 98 100 98 Oximetry 08/28/19 08/28/19 08/28/19 11:48 11:55 12:00 Temperature 97.6 F 97.6 F Pulse Rate 57 L 57 L Respiratory 18 18 18 Rate Blood Pressure 129/66 113/65 O2 Sat by Pulse 98 98 98 Oximetry 08/28/19 08/28/19 12:15 12:30 Temperature Pulse Rate 60 62 Respiratory 18 17 Rate Blood Pressure 129/66 109/36 O2 Sat by Pulse 97 98 Oximetry - Reevaluation(s) Reevaluation #1: 08/28/19 115 Case discussed with stroke neurologist Dr. Sauceda, patient is not a TPA candidate secondary to low NIH and improving symptoms, not a thrombectomy candidate. EKG Findings - EKG Comments: EKG Findings:: EKG: Sinus bradycardia, with PVC, intraventricular conduction delay with QRS 128, ventricular rate of 51, AL interval 174, QRS duration 128, QTC 442, similar compared to previous EKG in October 2018 Medical Decision Making - Medical Decision Making 64-year-old female presenting with right leg weakness and numbness. NIH is initially 2, this does improve with return to baseline, no reported numbness or weakness at 12:[address] brain which is negative for intracranial hemorrhage or mass effect. 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 Chest x-ray is negative for acute cardiopulmonary disease, no pneumothorax, no focal pneumonia. She has a normal CBC, normal CMP. She is given an aspirin emergency department she will be admit roldan for further CVA and TIA evaluation. Case is discussed with Dr. Langley who will accept admission. Neurology placed on consult. - Lab Data Result diagrams: 08/28/19 11:30 08/28/19 11:30 Lab Results 08/28/19 08/28/19 08/28/19 Range/Units 11:30 11:30 11:30 WBC 6.9 (3.8-10.6) k/uL RBC 4.97 (3.80-5.40) m/uL Hgb 15.9 (11.4-16.0) gm/dL Hct 47.5 H (34.0-46.0) % MCV 95.6 (80.0-100.0) fL MCH 32.0 (25.0-35.0) pg MCHC 33.5 (31.0-37.0) g/dL RDW 12.8 (11.5-15.5) % Plt Count 200 (150-450) k/uL Neutrophils % 65 % Lymphocytes % 23 % Monocytes % 4 % Eosinophils % 5 % Basophils % 2 % Neutrophils # 4.5 (1.3-7.7) k/uL Lymphocytes # 1.6 (1.0-4.8) k/uL Monocytes # 0.3 (0-1.0) k/uL Eosinophils # 0.3 (0-0.7) k/uL Basophils # 0.2 (0-0.2) k/uL PT 10.0 (9.0-12.0) sec INR 1.0 (<1.2) APTT 26.1 (22.0-30.0) sec Sodium (137-145) mmol/L Potassium (3.5-5.1) mmol/L Chloride (98-107) mmol/L Carbon Dioxide (22-30) mmol/L Anion Gap mmol/L BUN (7-17) mg/dL Creatinine (0.52-1.04) mg/dL Est GFR (CKD-EPI)AfAm (>60 ml/min/1.73 sqM) Est GFR (CKD-EPI)NonAf (>60 ml/min/1.73 sqM) Glucose (74-99) mg/dL Calcium (8.4-10.2) mg/dL Total Bilirubin (0.2-1.3) mg/dL AST (14-36) U/L ALT (4-34) U/L Alkaline Phosphatase (38-126) U/L Total Creatine Kinase 42 (30-135) U/L CK-MB (CK-2) 0.7 (0.0-2.4) ng/mL CK-MB (CK-2) Rel Index 1.7 Troponin I <0.012 (0.000-0.034) ng/mL Total Protein (6.3-8.2) g/dL Albumin (3.5-5.0) g/dL 08/28/19 Range/Units 11:30 WBC (3.8-10.6) k/uL RBC (3.80-5.40) m/uL Hgb (11.4-16.0) gm/dL Hct (34.0-46.0) % MCV (80.0-100.0) fL MCH (25.0-35.0) pg MCHC (31.0-37.0) g/dL RDW (11.5-15.5) % Plt Count (150-450) k/uL Neutrophils % % Lymphocytes % % Monocytes % % Eosinophils % % Basophils % % Neutrophils # (1.3-7.7) k/uL Lymphocytes # (1.0-4.8) k/uL Monocytes # (0-1.0) k/uL Eosinophils # (0-0.7) k/uL Basophils # (0-0.2) k/uL PT (9.0-12.0) sec INR (<1.2) APTT (22.0-30.0) sec Sodium 135 L (137-145) mmol/L Potassium 3.8 (3.5-5.1) mmol/L Chloride 106 (98-107) mmol/L Carbon Dioxide 21 L (22-30) mmol/L Anion Gap 8 mmol/L BUN 17 (7-17) mg/dL Creatinine 0.73 (0.52-1.04) mg/dL Est GFR (CKD-EPI)AfAm >90 (>60 ml/min/1.73 sqM) Est GFR (CKD-EPI)NonAf 88 (>60 ml/min/1.73 sqM) Glucose 144 H (74-99) mg/dL Calcium 9.8 (8.4-10.2) mg/dL Total Bilirubin 0.7 (0.2-1.3) mg/dL AST 21 (14-36) U/L ALT 18 (4-34) U/L Alkaline Phosphatase 83 (38-126) U/L Total Creatine Kinase (30-135) U/L CK-MB (CK-2) (0.0-2.4) ng/mL CK-MB (CK-2) Rel Index Troponin I (0.000-0.034) ng/mL Total Protein 6.9 (6.3-8.2) g/dL Albumin 4.1 (3.5-5.0) g/dL Critical Care Time Critical Care Time: Yes Total Critical Care Time: 35 Disposition Clinical Impression: Transient cerebral ischemia Disposition: ADMITTED IP TO THIS HOSP Condition: Stable Is patient prescribed a controlled substance at d/c from ED?: No Referrals: Ander Pacheco MD [Primary Care Provider] - 1-2 days Decision to Admit Reason: Admit from EC Decision Date: 08/28/19 Decision Time: 12:56
[2019-08-28 11:41] LABS: Basophils # (A) 0.2 k/uL (0-0.2); Basophils % (A) 2 %; Eosinophils # (A) 0.3 k/uL (0-0.7); Eosinophils % (A) 5 %; HCT 47.5 % (34.0-46.0); HGB 15.9 gm/dL (11.4-16.0); Lymphocytes # (A) 1.6 k/uL (1.0-4.8); Lymphocytes % (A) 23 %; MCHC 33.5 g/dL (31.0-37.0); MCV 95.6 fL (80.0-100.0); Mean Platelet Volume 9.4; Monocytes # (A) 0.3 k/uL (0-1.0); Monocytes % (A) 4 %; Neutrophils # (A) 4.5 k/uL (1.3-7.7); Neutrophils % (A) 65 %; Platelet Count 200 k/uL (150-450); RBC 4.97 m/uL (3.80-5.40); RDW 12.8 % (11.5-15.5); WBC 6.9 k/uL (3.8-10.6)
[2019-08-28 11:48] LABS: ALT 18 U/L (4-34); AST 21 U/L (14-36); African American GFR (CKD) >90 (>60 ml/min/1.73 sqM); Albumin 4.1 g/dL (3.5-5.0); Alkaline Phosphatase 83 U/L (38-126); Anion Gap 8 mmol/L; Blood Urea Nitrogen 17 mg/dL (7-17); Calcium 9.8 mg/dL (8.4-10.2); Carbon Dioxide 21 mmol/L (22-30); Chloride 106 mmol/L (98-107); Glucose 144 mg/dL (74-99); Non-African American GFR(CKD) 88 (>60 ml/min/1.73 sqM); Partial Thromboplastin Time 26.1 sec (22.0-30.0); Potassium 3.8 mmol/L (3.5-5.1); Sodium 135 mmol/L (137-145); Total Bilirubin 0.7 mg/dL (0.2-1.3); Total Protein 6.9 g/dL (6.3-8.2)
--- NOTE | 2019-08-28 11:51 | CT ---
EXAMINATION TYPE: CT brain wo con DATE OF EXAM: 08/28/2019 COMPARISON: NONE HISTORY: Rt leg numbness and weakness, neuro deficits CT DLP: 1018.8 mGycm Automated exposure control for dose reduction was used. FINDINGS: Central structures are midline. There is no evidence of hydrocephalus. No acute focal lesion, mass ef fect or midline shift is seen. I do not see evidence of intracranial blood. Visualized portions of the paranasal sinuses and mastoids are clear. The bony calvarium is intact. IMPRESSION: NO ACUTE INTRACRANIAL ABNORMALITY.
[2019-08-28 11:57] LABS: Creatine Kinase 42 U/L (30-135)
--- NOTE | 2019-08-28 12:08 | XR ---
EXAMINATION TYPE: XR chest 2V DATE OF EXAM: 08/28/2019 HISTORY: altered mental status. REFERENCE: Previous study dated 10/20/2018. FINDINGS: There is been a midline sternotomy and mitral valve replacement. The heart is mildly enlarg ed. The lungs are clear. Pleural spaces are clear. IMPRESSION: 1. CARDIOMEGALY. 2. POSTSURGICAL CHANGE.
[2019-08-28 12:10] LABS: Creatine Kinase MB 0.7 ng/mL (0.0-2.4); Troponin I <0.012 ng/mL (0.000-0.034)
--- NOTE | 2019-08-28 12:21 | CT ---
EXAMINATION TYPE: CT angio head neck DATE OF EXAM: 08/28/2019 HISTORY: Right leg weakness COMPARISON: CT scan of earlier today. CT DLP: 405.4 mGycm. Automated Exposure Control for Dose Reduction was Utilized. TECHNIQUE: CTA scan of the neck is performed with IV Contrast, patient injected with 65 mL of Isovue 370, axial images are obtained, coronal and sagittal reformatted images are reviewed. Three-D recons tructed images are created on an independent workstation on the right. And reviewed. FINDINGS: There are fairly severe emphysematous changes throughout the visualized portions of the delbert gs. There is aneurysmal dilatation of the proximal aortic arch which measures 3.3 cm. The proximal de scending thoracic aorta is normal in size at 2.6 cm. There is asymmetry in the soft tissues of the parapharyngeal soft tissues with prominence on the left . There is no significant cervical adenopathy. Visualized intracranial structures are unremarkable. Vertebral body height and alignment are maintained. Atlantoaxial relationships are normal. There is d egenerative disc disease and hypertrophic spondylosis most marked at C5-6 and C6-7. There is uncovert ebral joint disease at this level. There is a complete occlusion of the left common carotid artery at its origin.. Middle cerebral arter y branches are reconstituted via collateral vessels. On the right there is moderate atheromatous calcification at the level of the carotid bulb there is n ot a hemodynamically significant stenosis on the right. The right vertebral artery is dominant. CTA of the [place] confirms occlusion of the left carotid artery. The middle cerebral artery is reconstituted via anterior to indicating artery and meningeal vessels. The posterior circulation has a normal appearance. There is a slight possibility of the middle cerebral artery branches on the left. No definite occlusion in the MCA region is seen IMPRESSION: 1. Complete occlusion of the left internal carotid artery at its origin with reconstitution of the mi ddle cerebral artery via collaterals. 2. Aneurysmal dilatation of the ascending thoracic aorta with maximal transverse diameter of 3.3 cm. 3. Degenerative changes within the spine. 4. Emphysematous changes within the lungs.
[2019-08-28] MEDS ORDERED: ASPIRIN 325 MG TAB PO STA (12:52)
[2019-08-28] MEDS ORDERED: SODIUM CHLORIDE 0.9% 1,000 ML IV SCH (13:00)
[2019-08-28 13:57] LABS: Appearance,Urine Clear (Clear); Bilirubin,Urine Negative (Negative); Blood,Urine Negative (Negative); Color,Urine Light Yellow; Glucose,Urine (UA) Negative (Negative); Ketones,Urine Negative (Negative); Leukocyte Esterase,Urine Negative (Negative); Nitrite,Urine Negative (Negative); Protein,Urine Negative (Negative); Specific Gravity,Urine 1.037 (1.001-1.035); Urobilinogen,Urine <2.0 mg/dL (<2.0)
--- NOTE | 2019-08-28 14:02 | P.HPIM ---
History of Present Illness Chief Complaint: Right leg numbness 64-year-old female with history of coronary artery disease and carotid artery disease hypertension who presents with sudden onset of right leg numbness. Per chart account that per patient confirmation of this started around 10 AM on the day of admission. The sensation was off numbness pins and needles without clement weakness. There was no any other focal neurological complaint vision changes speech changes headache or neck pain. There was no any back pain, difficulties in urination or bowel movements. Patient came to emergency department via private vehicle with her . Code stroke was somnolent but by the time patient was evaluated for symptoms completely resolved. Currently during my interview patient does not have any active neurological symptoms. CT of the head was unremarkable for any acute changes or bleed. Initial blood work was normal and her vital signs are normal. Patient was given aspirin and admitted to further evaluate Patient has history of bypass surgery done in 2007. She is taking aspirin and statin. She has not experienced any stroke related to symptoms in the past. She had left CEA done in 2012 with a local vascular surgeon. Review of Systems Review of systems negative except mentioned in HPI Past Medical History Past Medical History: Heart Failure, COPD, Hyperlipidemia, Hypertension, Myocardial Infarction ([place]) Last Myocardial Infarction Date:: 2007 History of Any Multi-Drug Resistant Organisms: None Reported Past Surgical History: Coronary Bypass/CABG Past Anesthesia/Blood Transfusion Reactions: No Reported Reaction Past Psychological History: No Psychological Hx Reported Smoking Status: Current every day smoker Past Alcohol Use History: None Reported Past Drug Use History: None Reported Medications and Allergies Home Medications Medication Instructions Recorded Confirmed Type Lisinopril [Prinivil] 20 mg PO BID 11/24/14 08/28/19 History Carvedilol 25 mg PO BID 10/19/18 08/28/19 History amLODIPine [Norvasc] 10 mg PO DAILY 10/19/18 08/28/19 History Aspirin 81 mg PO DAILY chew 10/21/18 08/28/19 Rx Furosemide [Lasix] 40 mg PO DAILY #30 tablet 10/21/18 08/28/19 Rx Atorvastatin [Lipitor] 80 mg PO DAILY 08/28/19 08/28/19 History Ergocalciferol (Vitamin D2) 50,000 unit PO WE 08/28/19 08/28/19 History [Drisdol] Allergies Allergy/AdvReac Type Severity Reaction Status Date / Time No Known Allergies Allergy Verified 08/28/19 11:12 Physical Exam Vitals: Vital Signs Temp Pulse Resp BP Pulse Ox 08/28/19 13:55 50 L 18 141/72 100 08/28/19 13:00 97.7 F 61 18 122/62 98 08/28/19 12:55 97.6 F 64 17 121/57 98 08/28/19 12:45 97.7 F 64 18 118/63 08/28/19 12:40 97.7 F 61 17 118/63 98 08/28/19 12:30 62 17 109/36 98 08/28/19 12:25 97.8 F 94 17 157/62 98 08/28/19 12:15 60 18 129/66 97 08/28/19 12:00 97.6 F 57 L 18 113/65 98 08/28/19 11:55 97.6 F 57 L 18 129/66 98 08/28/19 11:48 18 98 08/28/19 11:40 97.6 F 53 L 18 113/65 98 08/28/19 11:24 97.6 F 55 L 18 142/71 100 08/28/19 11:09 97.6 F 53 L 18 142/71 98 Intake and Output 08/27/19 08/28/19 08/28/19 22:59 06:59 14:59 Other: Weight 68.039 kg Vital Signs: I have reviewed the vital signs. GENERAL: Well-nourished, Well-developed , no apparent distress, cooperative Eyes: PERRL, extraoculry movements intact, clear conjunctiva Head: : Atraumatic external nose and ears, oropharyngeal mucosa is moist without lesions or exudates Neck: Symmetric, trachea midline, No thyromegaly, no masses or neck vain pulsation, no neck rigidity CVS: +S1/S2, No murmurs or gallops. Peripheral pulses 2+ and equal in all extremities. RESP: Unlabored respiratory effort. Clear to auscultation bilaterally. Abdomen: Bowel sounds present in all 4 quadrants, Soft to palpation, Nontender/Nondistended, No hepatosplenomegaly, no hernias or masses, no CVA tnderness Musculoskeletal: Extremities w/o deformity, No cyanosis or clubbing, no joint swelling Skin: Warm, Dry. 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, motor strenght 5/5 i upper and lower extremities, no clonus, patellar DTRs 2+ and sympetrical; finger to nose and heel to olea is intact; sensitivity to light touch and pinprick is normal in upper and lower extremities is symmetrical; Flexeril is blunted bilateral Psych: Awake, Alert, & Oriented (AAO) x3 Appropriate mood and affect Results CBC & Chem 7: 08/28/19 11:30 08/28/19 11:30 Labs: Abnormal Lab Results - Last 24 Hours (Table) 08/28/19 08/28/19 Range/Units 11:30 11:30 Hct 47.5 H (34.0-46.0) % Sodium 135 L (137-145) mmol/L Carbon Dioxide 21 L (22-30) mmol/L Glucose 144 H (74-99) mg/dL Assessment and Plan Assessment: 1. Acute onset of right lower extremity numbness Now resolved Rule out TIA versus or other etiologies Neurology consulted CT and CTA of the neck and brain performed Left CVA disease Echocardiogram May need to obtain vascular surgery evaluation MRI of the brain No active symptoms right now or in preceding days no back pain Continue as per TIA protocol Continue aspirin and statin 2. Coronary disease Status post CABG Currently asymptomatic and stable EKG Obtain echocardiogram Continue usual home medication 3. Hypertension Continue usual care next Patient is full code She is admitted under observation Her is a surrogate decision maker
[2019-08-28] MEDS: NICOTINE 14MG/24HR PATCH TRANSDERM SCH (18:44)
[2019-08-29 06:57] LABS: Cholesterol 158 mg/dL (<200); HDL Cholesterol 31 mg/dL (40-60); LDL Cholesterol,Calculated 97 mg/dL (0-99); Triglycerides 148 mg/dL (<150)
[2019-08-29] MEDS ORDERED: ATORVASTATIN 80 MG TAB PO SCH ×2 (09:00→21:00)
[2019-08-29] MEDS ORDERED: ASPIRIN 325 MG TAB PO SCH (09:00)
[2019-08-29] MEDS: NICOTINE 14MG/24HR PATCH TRANSDERM SCH (09:11)
[2019-08-29] MEDS: ASPIRIN 81 MG PO SCH (09:11)
[2019-08-29] MEDS: ENOXAPARIN 40 MG/0.4 ML SYRINGE SQ SCH (09:11)
[2019-08-29] MEDS: HYDROCHLOROTHIAZIDE 25 MG TAB PO SCH (10:17)
[2019-08-29] MEDS: LISINOPRIL 20 MG TAB PO SCH ×2 (10:17→20:35)
--- NOTE | 2019-08-29 12:08 | MR ---
EXAMINATION TYPE: MR brain wo/w con DATE OF EXAM: 08/29/2019 COMPARISON: CT brain 08/28/2019 HISTORY: RLE paresthesia CONTRAST: Performed utilizing 7.5 mL intravenous Gadavist gadolinium contrast. TECHNIQUE: Multiplanar, multiecho imaging on a 3.0 Anastasiya magnet is performed through the brain. Stud y is performed within 24 hours of arrival to the hospital. The craniovertebral junction is normal. The pituitary is normal. Diffusion-weighted imaging is performed. No abnormal hyperintensity is present to suggest an acute i ntracranial infarct or acute ischemic change. There are couple of punctate subcortical white matter c hanges which may have some subtle increased intensity on the diffusion imaging within the left centru m semiovale, series 305 images 176 and 184. These areas correlate with hyperintensity on the inversio n recovery sequence. There are additional areas of increased signal within the brain on inversion recovery. Findings can BE compatible some chronic white matter ischemic change. Ventricles and sulci are appropriate for the patient age. No abnormal enhancement is evident. IMPRESSIONS: 1. Two punctate areas of subtle hyperintensity in the subcortical left parietal centrum semiovale cou ld be subacute ischemic changes. 2. There is chronic appearing white matter ischemic changes are present bilaterally.
--- NOTE | 2019-08-29 13:11 | CONS ---
ZOILA Fam is a 64-year-old lady who is admitted to hospital with right arm and leg numbness. This has improved by the time I evaluated her. Her clinical presentation is consistent with a diagnosis of TIA and we have been asked to rule out cardiac source for thromboembolic phenomenon. Patient has known carotid stenosis and underwent left carotid endarterectomy for the same. CTA of the carotid shows that she had total occlusion of the left internal carotid artery and moderate atherosclerotic plaque in the right internal carotid artery. She has known CAD and had prior bypass surgery. At the time of my evaluation this morning, patient appears comfortable at rest and is free of cardiac symptoms. PAST MEDICAL HISTORY: Significant for coronary artery disease, status post CABG, hypertension, dyslipidemia, COPD. PAST SURGICAL HISTORY: Significant for bypass surgery. SOCIAL HISTORY: Significant for smoking. MEDICATIONS: The patient is currently on lisinopril 20 b.i.d., carvedilol 25 b.i.d., amlodipine 10 q. daily, aspirin, Lasix, Lipitor and vitamin D. ALLERGIES: Allergies are as charted. FAMILY HISTORY: Negative for premature coronary artery disease. SOCIAL HISTORY: Negative for current smoking, EtOH abuse or drug abuse. REVIEW OF SYSTEMS: HEENT is unremarkable. CARDIAC: As described above. RESPIRATORY: As described above. GI: Negative. GENITOURINARY: Negative. ALLERGY/IMMUNOLOGY: Negative. SKIN: Negative. MUSCULOSKELETAL: Negative. ENDOCRINE: Negative. DERM: Negative. CONSTITUTIONAL: Negative. ONCOLOGICAL: Negative. IT OPERATIONS MANAGER: Negative. Rest of the system review is not relevant. PHYSICAL EXAMINATION: On exam, patient is comfortable at rest. Vital signs are stable. Chest exam reveals good air entry bilaterally. Heart exam reveals first and second heart sounds. No gallop. No murmur. Abdomen is soft. Exam of extremities did not reveal any edema. Peripheral pulses are felt. IT OPERATIONS MANAGER exam did not reveal focal neurological deficits. The patient has right-sided carotid bruit. EKG shows sinus rhythm, poor R-wave progression and PVCs. LABS: Labs show that the hemoglobin is normal. Potassium is 3.8. Creatinine is 0.7. LDL cholesterol is 97. ASSESSMENT: 1. Transient ischemic attack. 2. Coronary artery disease, status post coronary artery bypass grafting. 3. Carotid stenosis, status post left carotid endarterectomy. 4. Hypertension. 5. Dyslipidemia. PLAN: Continue Lipitor at 80 mg. Continue aspirin. It is unclear as to why patient is on Xarelto 2.5 b.i.d., we will investigate this further. I am going to obtain a 2D echo to evaluate her LV function. I am not sure if we really need to look for etiologies for cryptogenic stroke in a patient who has severe bilateral carotid stenosis with chronic occlusion of the left and moderate disease on the right. She also has other stroke risk factors including hypertension, severe dyslipidemia and current smoking. I encouraged her to quit smoking. If the neurologist feels MAXIMINO is required, we will do it. We can certainly do an event monitor on discharge to look for episodes of atrial fibrillation and we will watch her on telemetry right here. MMODL / IJN: [id number] /
--- NOTE | 2019-08-29 13:32 | P.CNNES ---
History of Present Illness Consult date: 08/29/19 Requesting physician: Aron Ferrara Reason for Consult: TIA History of Present Illness: Patient is a 64-year-old right-handed female, who states that yesterday in the morning, she came out of the bathtub, got dressed and was coming down to the kitchen when she noticed her right leg felt numb, from hip all the way to the foot. There was no associated numbness of her arm or the face, slurred speech facial droop. She felt right leg was weak. No fall. She hopped over to the couch, and felt couldn't move her right leg. Patient finally decided to come to the ER and arrived at 11:21 AM. Patient states her symptoms resolved in half an hour. At present she has no symptoms. Patient had computed tomography scan of the head, which was normal. CTA of the neck and head showed complete occlusion of the left ICA at its origin with reconsideration of the middle cerebral artery via collaterals. Aneurysmal dilation of the ascending thoracic aorta with maximal transfers dimetria of 3.3 cm. Degenerative changes within the spine. Emphysematous changes within the lungs. Chest x-ray showed cardiomegaly, post surgical change. EKG showed sinus bradycardia with occasional PVCs. Nonspecific intraventricular block. Abnormal QRST. Patient had MRI of the brain without and with contrast, which revealed to punctate areas of subtle hyperintensity in the subcortical left parietal centrum semiovale, could be ruiz bacute ischemic changes. There is chronic appearing white better ischemic changes present bilaterally. Patient had a 2-D echo on 10/20/2018 which revealed EF 45-50%. Inferior basal hypokinesis. Basal septal hypokinesis. The right ventricle is normal in size. Left atrial size is normal. Patient had a repeat 2-D echo performed today, which has been completed but results pending. Patient has hypertension for 12 years, denies diabetes. She has hyperlipidemia, controlled on medication. Patient started smoking at age 15-16. She has smoked 1 pack per day for 45 years. In the last 4-5 years, she has been smoking 10 cigarettes per day. She did quit for a period of 3 years in between. Denies any alcohol or drugs. Patient states that she was told to take aspirin every day, which she often misses it, 30% of the time she misses it. Patient has history of left CEA in the past, follows up with a vascular surgeon. A shunt was last seen by the vascular surgeon 3 months ago and was told the arteries looked okay. Patient was told to take aspirin daily and quit tobacco, which she has been noncompliant with. Review of Systems Denies headache, diplopia, slurred speech facial droop denies shortness of breath wheezing cough. Denies chest pain. Denies nausea vomiting diarrhea. Past Medical History Past Medical History: Heart Failure, COPD, Hyperlipidemia, Hypertension, Myocardial Infarction ([place]), Pneumonia Additional Past Medical History / Comment(s): Left internal carotid artery disease - known and being monitored by Dr. Watts. Last Myocardial Infarction Date:: 2007 History of Any Multi-Drug Resistant Organisms: None Reported Past Surgical History: Coronary Bypass/CABG, Heart Catheterization Additional Past Surgical History / Comment(s): Mitral valve replacement, left endartarectomy 2012. Past Anesthesia/Blood Transfusion Reactions: No Reported Reaction Past Psychological History: No Psychological Hx Reported Smoking Status: Current every day smoker Past Alcohol Use History: None Reported Past Drug Use History: None Reported - Past Family History Father Family Medical History: Coronary Artery Disease (CAD), CVA/TIA Additional Family Medical History / Comment(s): from a blood clot in his liver at age 79. Mother Additional Family Medical History / Comment(s): of thoracic aneurysm at age 38. Medications and Allergies Home Medications Medication Instructions Recorded Confirmed Type Lisinopril [Prinivil] 20 mg PO BID 11/24/14 08/28/19 History Carvedilol 25 mg PO BID 10/19/18 08/28/19 History Aspirin 81 mg PO DAILY chew 10/21/18 08/28/19 Rx Atorvastatin [Lipitor] 80 mg PO DAILY 08/28/19 08/28/19 History Ergocalciferol (Vitamin D2) 50,000 unit PO WE 08/28/19 08/28/19 History [Drisdol] Hydrochlorothiazide [Hydrodiuril] 25 mg PO DAILY 08/28/19 08/28/19 History Rivaroxaban [Xarelto] 2.5 mg PO BID 08/28/19 08/28/19 History Allergies Allergy/AdvReac Type Severity Reaction Status Date / Time No Known Allergies Allergy Verified 08/28/19 11:12 Physical Examination - Vital Signs Vital Signs: Vital Signs Temp Pulse Pulse Resp BP BP BP 08/29/19 12:00 54 L 18 08/29/19 08:15 72 18 220/105 08/29/19 04:00 97.6 F 52 L 18 08/29/19 00:00 98.2 F 54 L 18 08/28/19 20:00 97.4 F L 58 L 18 196/85 190/85 08/28/19 17:52 97.6 F 56 L 16 08/28/19 17:09 98.0 F 58 L 18 142/83 08/28/19 16:28 55 L 18 168/85 08/28/19 16:00 56 L 16 08/28/19 15:00 97.7 F 53 L 18 160/79 08/28/19 14:45 97.7 F 53 L 18 147/56 08/28/19 14:00 97.7 F 55 L 18 135/58 08/28/19 13:55 50 L 18 141/72 BP BP BP Pulse Ox 08/29/19 12:00 172/83 96 08/29/19 08:15 96 08/29/19 04:00 139/58 93 L 08/29/19 00:00 152/71 152/68 92 L 08/28/19 20:00 159/72 94 L 08/28/19 17:52 175/77 94 L 08/28/19 17:09 97 08/28/19 16:28 98 08/28/19 16:00 08/28/19 15:00 98 08/28/19 14:45 98 08/28/19 14:00 97 08/28/19 13:55 100 Intake and Output 08/28/19 08/29/19 08/29/19 22:59 06:59 14:59 Intake Total 1000 780 Output Total 2 Balance 1000 778 Intake: Intake, IV Titration 1000 Amount Sodium Chloride 0.9% 1, 1000 000 ml @ 20 mls/hr IV . Q24H [facility] Rx#:[id number] Oral 780 Output: Urine 2 Other: Voiding Method Toilet Toilet # Voids 1 1 Weight 68.039 kg 68.7 kg On examination patient is an elderly female, in no distress. Patient is alert and awake fully oriented. Speech and language functions are normal. Attention and concentration fund of knowledge is adequate. On cranial nerve examination pupils are round and reactive to light, visual gomes are full, face is symmetric, tongue protrudes the midline. Palatal elevation and sensation normal. On muscle strength testing there is no pronator drift and the strength is normal in arms and legs distally and proximally. Reflexes are 1+ and plantars downgoing sensory touch is equal. No ataxia for [id number] testing. Tone and bulk of muscles normal. Gait deferred. No obvious bruit S1 and S2 audible. No edema. Results - Laboratory Findings CBC and BMP: 08/28/19 11:30 08/28/19 11:30 Abnormal Lab Findings: Abnormal Labs 08/28/19 08/28/19 08/28/19 11:30 11:30 13:36 Hct 47.5 H Sodium 135 L Carbon Dioxide 21 L Glucose 144 H HDL Cholesterol Ur Specific Peculiar 1.037 H 08/29/19 05:30 Hct Sodium Carbon Dioxide Glucose HDL Cholesterol 31 L Ur Specific Peculiar Assessment and Plan Assessment: * Possible TIA manifesting with transient numbness and weakness of the right leg, that resolved in half an hour. MRI of the brain revealed evidence of possible small/tiny, subacute ischemic lesion in the left parietal centrum semiovale. * Occluded left ICA, uncertain new or old. * History of left CEA 2012. * Hypertension * Hyperlipidemia * Chronic tobacco user. * Coronary artery disease. Plan: * 2-D echo has been completed, results pending. * We will check hemoglobin A1c. * Continue high-dose statins. * Suggest dual antiplatelet medication aspirin and Plavix 75 mg for 21 days and then monotherapy with aspirin 325 mg daily indefinitely. Patient informed about importance of compliance with medication. * Suggest vascular surgical consultation for left ICA occlusion and aneurysmal dilation of the ascending thoracic aorta with maximal transverse diameter of 3.3 cm. Patient states that she had history of left CEA in the past. She follows up with vascular surgeon, and the last visit 3 months ago, she was told everything was "fine". This suggest acute to subacute occlusion of the left ICA. * Strongly recommended complete tobacco cessation.
[2019-08-29 14:25] LABS: Hemoglobin A1C 5.8 % (4.0-6.0)
--- NOTE | 2019-08-29 15:12 | P.PN ---
Subjective Nonunion events overnight. Patient does not have any further neurological symptoms. MRI showed 2 small punctate area in the left corpus semiovale concerned for acute ischemic changes Objective - Vital Signs Vital signs: Vital Signs Temp 97.6 F 08/29/19 04:00 Pulse 56 L 08/29/19 13:53 Resp 20 08/29/19 13:53 BP 156/68 08/29/19 13:53 Pulse Ox 94 L 08/29/19 13:53 Intake & Output 08/28/19 08/29/19 08/29/19 18:59 06:59 18:59 Intake Total 1000 780 Output Total 2 Balance 1000 778 Weight 68.039 kg 68.7 kg Intake: Intake, IV Titration 1000 Amount Sodium Chloride 0.9% 1, 1000 000 ml @ 20 mls/hr IV . Q24H [facility] Rx#:[id number] Oral 780 Output: Urine 2 Other: Voiding Method Toilet Toilet # Voids 1 1 - Exam Vital Signs: I have reviewed the vital signs. GENERAL: Well-nourished, Well-developed , no apparent distress, cooperative Eyes: PERRL, extraoculry movements intact, clear conjunctiva Head: : Atraumatic external nose and ears, oropharyngeal mucosa is moist without lesions or exudates Neck: Symmetric, trachea midline, No thyromegaly, no masses or neck vain pulsation, no neck rigidity CVS: +S1/S2, No murmurs or gallops. Peripheral pulses 2+ and equal in all extremities. RESP: Unlabored respiratory effort. Clear to auscultation bilaterally. Abdomen: Bowel sounds present in all 4 quadrants, Soft to palpation, Nontender /Nondistended, No hepatosplenomegaly, no hernias or masses, no CVA tnderness Musculoskeletal: Extremities w/o deformity, No cyanosis or clubbing, no joint swelling Skin: Warm, Dry. 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 Acute ischemic stroke MRI showing 2 small areas seen centrum semiovale Neurology following adjusted antiplatelets Possibility for loop recorder raised and cardiology evaluated 2. Coronary disease Status post CABG Currently asymptomatic and stable EKG Obtain echocardiogram Continue usual home medication 3. Hypertension Continue usual care Clarification: Patient is not currently on any anticoagulation including Xarelto. She was briefly on Xarelto in the past when she had CTA surgery but she hasn't been on this medication in a long time. We will contact the pharmacy to remove this for from her home list of medications
[2019-08-29] MEDS: CLOPIDOGREL 75 MG TAB PO SCH (15:29)
[2019-08-29] MEDS ORDERED: CARVEDILOL 12.5 MG TAB PO SCH (17:30)
[2019-08-29] MEDS: CARVEDILOL 12.5 MG TAB PO SCH (17:33)
--- NOTE | 2019-08-29 19:40 | ECHOF ---
Referral Reason:Thrombus MEASUREMENTS -------- HEIGHT: 157.5 cm WEIGHT: 68.5 kg BP: 139/58 RVIDd: 2.8 cm (< 3.3) IVSd: 1.4 cm (0.6 - 1.1) LVIDd: 4.3 cm (3.9 - 5.3) LVPWd: 1.4 cm (0.6 - 1.1) IVSs: 2.0 cm LVIDs: 2.9 cm LVPWs: 1.6 cm LA Diam: 3.7 cm (2.7 - 3.8) LAESV Index (A-L): 46.64 ml/m Ao Diam: 3.0 cm (2.0 - 3.7) AV Cusp: 1.6 cm (1.5 - 2.6) MV EXCURSION: 12.432 mm (> 18.000) MV EF SLOPE: 32 mm/s (70 - 150) EPSS: 0.8 cm MV E Brennan: 1.55 m/s MV DecT: 339 ms MV A Brennan: 1.51 m/s MV E/A Ratio: 1.03 AV maxP.10 mmHg AV meanP.89 mmHg RAP: 5.00 mmHg RVSP: 40.43 mmHg FINDINGS -------- Sinus rhythm. This was a technically adequate study. The left ventricular size is normal. There is moderate concentric left ventricular hypertrophy. O verall left ventricular systolic function is normal with, an EF between 55 - 60 %. The right ventricle is normal in size. LA is severely dilated >40 ml/m2 The right atrium is normal in size. Interatrial and interventricular septum intact. There is mild aortic valve sclerosis. Peak/mean gradient across the Aortic Valve is 12.10mmHg / 4.8 9mmHg. The mitral valve leaflets are mildly thickened. Mild mitral annular calcification present. The p eak and mean MV gradients are 13.48mmHg 4.54mmHg as measured by doppler. MV Repair. Mild tricuspid regurgitation present. There is mild pulmonary hypertension. The right ventricular systolic pressure, as measured by Doppler, is 40.43mmHg. Trace/mild (physiologic) pulmonic regurgitation. The aortic root size is normal. Normal inferior vena cava with normal inspiratory collapse consistent with estimated right atrial pre ssure of 5 mmHg. There is no pericardial effusion. CONCLUSIONS -------- 1. Sinus rhythm. 2. This was a technically adequate study. 3. The left ventricular size is normal. 4. There is moderate concentric left ventricular hypertrophy. 5. The right ventricle is normal in size. 6. LA is severely dilated >40 ml/m2 7. The right atrium is normal in size. 8. Interatrial and interventricular septum intact. 9. There is mild aortic valve sclerosis. 10. Peak/mean gradient across the Aortic Valve is 12.10mmHg / 4.89mmHg. 11. The mitral valve leaflets are mildly thickened. 12. Mild mitral annular calcification present. 13. The peak and mean MV gradients are 13.48mmHg 4.54mmHg as measured by doppler. 14. MV Repair. 15. Mild tricuspid regurgitation present. 16. There is mild pulmonary hypertension. 17. The right ventricular systolic pressure, as measured by Doppler, is 40.43mmHg. 18. Trace/mild (physiologic) pulmonic regurgitation. 19. The aortic root size is normal. 20. Normal inferior vena cava with normal inspiratory collapse consistent with estimated right atrial pressure of 5 mmHg. 21. There is no pericardial effusion. CHAUFFEUR: JERMAN Escobar
--- NOTE | 2019-08-30 08:11 | P.GSCN ---
History of Present Illness Consult date: 08/30/19 Reason for Consult: left carotid artery occlusion History of present illness: 64 year old right handed female with history of left CE[place] [address] Watts who follows in his office presented to the hospital secondary to right leg numbness from her hip to the foot. She denied any other lateralizing symptoms such as vision changes or speech issues. Symptoms resolved after 30 minutes. Upon evaluation in the ER, CT brain and neck was obtained demonstrating left carotid occlusion. Per her recent doppler in Stefanie's office patient had occlusion of the left ICA at that time as well. Currently no numbness of the right lower extremity. Denies any other lateralizing symptoms. Denies any fevers, chills, nausea, vomiting, chest pain or shortness of breath. Review of Systems All systems: negative (what is mentioned in the HPI or PMH) Past Medical History Past Medical History: Heart Failure, COPD, Hyperlipidemia, Hypertension, Myocardial Infarction (AR), Pneumonia Additional Past Medical History / Comment(s): Left internal carotid artery disease - known and being monitored by Dr. Watts. Last Myocardial Infarction Date:: 2007 History of Any Multi-Drug Resistant Organisms: None Reported Past Surgical History: Coronary Bypass/CABG, Heart Catheterization Additional Past Surgical History / Comment(s): Mitral valve replacement, left endartarectomy 2012. Past Anesthesia/Blood Transfusion Reactions: No Reported Reaction Past Psychological History: No Psychological Hx Reported Smoking Status: Current every day smoker Past Alcohol Use History: None Reported Past Drug Use History: None Reported - Past Family History Father Family Medical History: Coronary Artery Disease (CAD), CVA/TIA Additional Family Medical History / Comment(s): from a blood clot in his liver at age 79. Mother Additional Family Medical History / Comment(s): of thoracic aneurysm at age 38. Medications and Allergies Home Medications Medication Instructions Recorded Confirmed Type Lisinopril [Prinivil] 20 mg PO BID 11/24/14 08/28/19 History Carvedilol 25 mg PO BID 10/19/18 08/28/19 History Aspirin 81 mg PO DAILY chew 10/21/18 08/28/19 Rx Atorvastatin [Lipitor] 80 mg PO DAILY 08/28/19 08/28/19 History Ergocalciferol (Vitamin D2) 50,000 unit PO WE 08/28/19 08/28/19 History [Drisdol] Hydrochlorothiazide [Hydrodiuril] 25 mg PO DAILY 08/28/19 08/28/19 History Rivaroxaban [Xarelto] 2.5 mg PO BID 08/28/19 08/28/19 History Allergies Allergy/AdvReac Type Severity Reaction Status Date / Time No Known Allergies Allergy Verified 08/28/19 11:12 Surgical - Exam Vital Signs Temp Pulse Resp BP Pulse Ox 97.6 F 53 L 18 142/71 98 08/28/19 11:09 08/28/19 11:09 08/28/19 11:08/28/19 11:08/28/19 11:09 - General well developed, well nourished, no distress - Eyes PERRL, normal ocular movement - ENT normal pinna - Neck left sided carotid incisional scar. no masses - Respiratory normal expansion, normal respiratory effort - Cardiovascular Rhythm: regular - Abdomen Abdomen: soft, non tender - Integumentary no rash, no growths - Neurologic normal coordination, normal sensation - Psychiatric oriented to time, oriented to person, oriented to place, speech is normal Results - Labs 08/28/19 11:30 08/28/19 11:30 Diabetes panel 08/29/19 Range/Units 05:30 Hemoglobin A1c 5.8 (4.0-6.0) % - Imaging Comments: CTA neck reviewed. CT brain reviewed. Assessment and Plan Assessment: 1. Left ICA occlusion-known 2. Right ICA stenosis 3. Possible TIA 4. History of L CEA 5. Tobacco use 6. CAD 7. HTN Plan: Reviewed outpatient carotid doppler from last may- occlusion noted at that time for the left ICA Reviewed CTA of neck and MRI brain- no vascular surgical intervention at this time. Continue medical management. Follow up in office for continued monitoring with carotid doppler
[2019-08-30] MEDS: HYDROCHLOROTHIAZIDE 25 MG TAB PO SCH (08:41)
[2019-08-30] MEDS: LISINOPRIL 20 MG TAB PO SCH (08:41)
[2019-08-30] MEDS: CLOPIDOGREL 75 MG TAB PO SCH (08:41)
[2019-08-30] MEDS: ASPIRIN 81 MG PO SCH (08:41)
[2019-08-30] MEDS: NICOTINE 14MG/24HR PATCH TRANSDERM SCH (08:42)
[2019-08-30] MEDS: ENOXAPARIN 40 MG/0.4 ML SYRINGE SQ SCH (08:43)
[2019-08-30] MEDS: CARVEDILOL 12.5 MG TAB PO SCH (08:59)
[2019-08-30] MEDS ORDERED: amLODIPine 5 MG TAB PO SCH (09:00)
[2019-08-30 09:16] VITALS: RESP 20; TEMP 97.8
[2019-08-30 11:18] VITALS: BP 180/84; PULSE 55
--- NOTE | 2019-08-30 11:31 | P.DS ---
Providers Date of admission: 08/28/19 12:54 Attending physician: Vance Langley MD Consults: 08/28/19 12:53 Consult Physician Routine Consulting Provider: Chrissy Cao Consult Reason/Comments: TIA Do you want consulting provider notified?: Yes 08/29/19 09:51 Consult Physician Routine Consulting Provider: Alexander Hong Consult Reason/Comments: Loop Recorder Implantation before discharge Do you want consulting provider notified?: Yes 08/29/19 13:37 Consult Physician Routine Consulting Provider: Skylar Kraus Consult Reason/Comments: 100% occulded Left carotid Do you want consulting provider notified?: Yes Primary care physician: [facility] Course: Date of discharge: 08/30/2019 Chief complaint: Right lower extremity anesthesia Discharge diagnosis: 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 Daily for 21 days Pepcid Nicotine patches (she reported having nicotine patches at home and did not want any prescription) Continue: Atorvastatin 80 minutes by mouth daily, HCTZ 25 mg by mouth daily, lisinopril 10 mg by mouth twice a day, carvedilol 25 by mouth twice a day, Consultants: Neurology Dr. gil cardiology Dr. Kraus vascular surgery Pertinent studies results: MRI of the brain: 1. 2 punctate areas of subtle hyperintensity in the subcortical left parietal Centrum semiovale could be subacute ischemic changes 2. Chronic white matter ischemic changes bilaterally Echocardiogram: Moderate LVH LA severely dilated Right Atrium normal size EF is 55-60% Mild aortic valve sclerosis CT angiogram of the neck and head: Complete occlusion of the left internal carotid artery at its origin with reconstitution of the middle cerebral artery via collaterals Aneurysmal dilation of the ascending thoracic aorta with maximal transverse diameter of 3.3 cm Data changes in the spine Emphysematous changes within the lungs Reason for presentation: This is a 64-year-old female with history of coronary artery disease, carotid artery disease and ongoing smoking who presented with sudden onset of right lower extremity numbness and paresthesia. By her arrival within hour so to emergency department her symptoms started improving. Code stroke was summoned and she underwent evaluation with CT of the head and CT angiogram of the head and neck. By that time her symptoms completely resolved and she was admitted for further evaluation. Hospital course: Patient was evaluated by above consultants and underwent above-mentioned studies. Neurology recommended increasing her aspirin to 325 mg by mouth daily indefinitely plus adding Plavix 75 mg daily for 21 days. She is to continue atorvastatin. Blood pressure medications were continued and her blood pressure was stable. She was strongly advised smoking cessation and provided with nicotine patches which she will continue using at home. Given the history of significant carotid artery disease she was evaluated by vascular surgery from the office where she is following. They felt that her left carotid artery is chronically obstructed and no further intervention indicated that point. At the time of discharge patient was setup with heart event monitor for 30 days and she will follow-up with her [employer] [address] Patino in the office with the results. We would also advise that patient follow up with her primary care physician regarding the incidental finding of thoracic aortic aneurysm with a formal CT angiogram of the chest and abdominal aortic ultrasound On the day of discharge patient 's clinical condition was unchanged. She did not have any neurological complaints and her right lower extremity paresthesia completely resolved. Blood pressure was stable. Vital Signs: I have reviewed the vital signs. GENERAL: Well-nourished, Well-developed , no apparent distress, cooperative Eyes: PERRL, extraoculry movements intact, clear conjunctiva Head: : Atraumatic external nose and ears, oropharyngeal mucosa is moist without lesions or exudates Neck: Symmetric, trachea midline, No thyromegaly, no masses or neck vain pulsation, no neck rigidity CVS: +S1/S2, No murmurs or gallops. Peripheral pulses 2+ and equal in all extremities. RESP: Unlabored respiratory effort. Clear to auscultation bilaterally. Abdomen: Bowel sounds present in all 4 quadrants, Soft to palpation, Nontender/Nondistended, No hepatosplenomegaly, no hernias or masses, no CVA tnderness Neuro: lead etl developer II-XII grossly intact, motor strenght 5/5 i upper and lower extremities, no clonus, patellar DTRs 2+ and sympetrical Psych: Awake, Alert, & Oriented (AAO) x3 Appropriate mood and affect 45 minutes spent in discussion Patient Condition at Discharge: Stable Plan - Discharge Summary Discharge Rx Participant: No New Discharge Prescriptions: New Aspirin EC [Ecotrin] 325 mg PO DAILY #30 tablet. Nicotine 14Mg/24Hr Patch [Habitrol] 1 patch TRANSDERM DAILY patch Famotidine [Pepcid] 20 mg PO DAILY #30 tablet Clopidogrel [Plavix] 75 mg PO DAILY 20 Days #19 tab Continue Lisinopril [Prinivil] 20 mg PO BID Carvedilol 25 mg PO BID Ergocalciferol (Vitamin D2) [Drisdol] 50,000 unit PO WE Atorvastatin [Lipitor] 80 mg PO DAILY Hydrochlorothiazide [Hydrodiuril] 25 mg PO DAILY Discontinued Aspirin 81 mg PO DAILY chew Discharge Medication List Lisinopril [Prinivil] 20 mg PO BID 11/24/14 [History] Carvedilol 25 mg PO BID 10/19/18 [History] Atorvastatin [Lipitor] 80 mg PO DAILY 08/28/19 [History] Ergocalciferol (Vitamin D2) [Drisdol] 50,000 unit PO WE 08/28/19 [History] Hydrochlorothiazide [Hydrodiuril] 25 mg PO DAILY 08/28/19 [History] Aspirin EC [Ecotrin] 325 mg PO DAILY #30 tablet. 08/30/19 [Rx] Clopidogrel [Plavix] 75 mg PO DAILY 20 Days #19 tab 08/30/19 [Rx] Famotidine [Pepcid] 20 mg PO DAILY #30 tablet 08/30/19 [Rx] Nicotine 14Mg/24Hr Patch [Habitrol] 1 patch TRANSDERM DAILY patch 08/30/19 [Rx] Follow up Appointment(s)/Referral(s): Alexander Saha MD [STAFF PHYSICIAN] - 09/14/19 3:45 pm (Thursday) Joshua Martell DO [STAFF PHYSICIAN] - 09/13/19 2:30 pm (Thursday) Ander Pacheco MD [Primary Care Provider] - 09/02/19 10:00 am (Thursday) Patient Instructions/Handouts: Transient Ischemic Attack (DC), How to Stop Smoking (DC) Activity/Diet/Wound Care/Special Instructions: 30 day event monitor to be placed prior to discharge Discharge Disposition: HOME SELF-CARE Plan of Treatment: Follow up with your [employer] principal regarding results of heart event monitor
--- NOTE | 2019-08-30 13:31 | P.PN ---
Subjective Progress Note Date: 08/30/19 This is a 64-year-old female who presented to the hospital with symptoms of right arm and leg numbness, this had resolved by the time patient was arriving to the hospital. Her clinical presentation was consistent with diagnosis of a TIA and cardiology was initially requested to see the patient to rule out cardiac source. Patient has a known history of coronary artery disease with prior bypass surgery, hypertension, hyperlipidemia, COPD. Her echocardiogram with Doppler study was performed which revealed a normal left ventricular systolic function, patient was also seen by vascular surgery, no intervention will be performed at this time. She overall feels well today and is anticipating discharge home today. From cardiology's perspective she may be able to be discharged, follow-up with Dr. Clemente in the office, 30 day event monitor on discharge. Objective - Vital Signs Vital signs: Vital Signs Temp 97.8 F 08/30/19 08:00 Pulse 55 L 08/30/19 11:00 Resp 20 08/30/19 11:00 BP 180/84 08/30/19 11:00 Pulse Ox 97 08/30/19 11:00 Intake & Output 08/29/19 08/30/19 08/30/19 18:59 06:59 18:59 Intake Total 1140 360 Output Total 2 Balance 1138 360 Intake: Oral 1140 360 Output: Urine 2 Other: Voiding Method Toilet # Voids 2 1 - Exam PHYSICAL EXAMINATION: GENERAL: 64-year-old female in no acute distress at the time of my examination HEENT: Head is atraumatic, normocephalic. Pupils equal, round. Sclera anicteric. Conjunctiva are clear. Mucous membranes of the mouth are moist. Neck is supple. There is no elevated jugular venous pressure. No carotid bruit is heard. HEART EXAMINATION: Heart S1, S2 normal. No murmur or gallop heard. CHEST EXAMINATION: Lungs are clear to auscultation and precussion. No chest wall tenderness is noted on palpation or with deep breathing. ABDOMEN: Soft, nontender. Bowel sounds are heard. No organomegaly noted. EXTREMITIES: 2+ peripheral pulses with no evidence of peripheral edema and no calf tenderness noted. NEUROLOGIC patient is awake, alert and oriented 3 . . - Labs CBC & Chem 7: 08/28/19 11:30 08/28/19 11:30 Assessment and Plan Plan: Assessment and plan #1 TIA #2 coronary artery disease with prior bypass surgery #3 carotid stenosis, no vascular intervention at this time #4 hypertension #5 hyperlipidemia Plan Patient is being discharged home today, we would recommend a 30 day event monitor on discharge. Follow-up appointment with Dr. Saha in the office. DNP note has been reviewed, I agree with a documented findings and plan of care. Patient was seen and examined.
== END 2019-08-30 12:41 | disposition home or self-care (01) | DRG 66 ==
LOC: EC 11:06 → OBSVTOIN 12:54 → 3SCARD 12:54
PROVIDERS: ADMIT Hospitalist; ATTEND Hospitalist
DX: I63.89 Other cerebral infarction (principal); I25.10 Atherosclerotic heart disease of native coronary artery without angina pectoris; F17.210 Nicotine dependence, cigarettes, uncomplicated; I71.2 Thoracic aortic aneurysm, without rupture; G83.11 Monoplegia of lower limb affecting right dominant side; J43.9 Emphysema, unspecified; E78.5 Hyperlipidemia, unspecified; I11.0 Hypertensive heart disease with heart failure; I50.9 Heart failure, unspecified; I65.21 Occlusion and stenosis of right carotid artery; R20.0 Anesthesia of skin; R29.702 NIHSS score 2; I25.2 Old myocardial infarction; Z79.01 Long term (current) use of anticoagulants; Z79.02 Long term (current) use of antithrombotics/antiplatelets; Z79.82 Long term (current) use of aspirin; Z79.899 Other long term (current) drug therapy; Z79.52 Long term (current) use of systemic steroids; Z87.01 Personal history of pneumonia (recurrent); Z95.2 Presence of prosthetic heart valve; Z95.1 Presence of aortocoronary bypass graft; Z91.19 Patient's noncompliance with other medical treatment and regimen; Z82.49 Family history of ischemic heart disease and other diseases of the circulatory system; Z82.3 Family history of stroke
CPT/HCPCS: 36415; 70450; 70496; 70498; 70553; 71046; 80053; 80061; 81003; 82550; 82553; 83036; 84484; 85025; 85610; 85730; 93005; 93270; 93306; 96360; 99291

== ENCOUNTER 2019-10-31 06:32 | Day surgery (SDC) | payer BC ==
[2019-10-31] MEDS ORDERED: SODIUM CHLORIDE 0.9% 1,000 ML IV ONE ×3 (06:45→12:00)
[2019-10-31] MEDS ORDERED: ALPRAZolam 0.5 MG TAB PO PRN (07:03)
[2019-10-31] MEDS ORDERED: ASPIRIN 325 MG TAB PO STA (07:03)
[2019-10-31] MEDS ORDERED: NITROGLYCERIN SL TABS 0.4 MG TAB SUBLINGUAL PRN ×2 (07:03→10:29)
[2019-10-31] MEDS ORDERED: ATORVASTATIN 80 MG TAB PO STA (07:03)
[2019-10-31] MEDS ORDERED: SODIUM CHLORIDE 0.9% 1,000 ML in EMPTY BAG 1 BAG IV ONE (07:03)
[2019-10-31] MEDS ORDERED: ALPRAZolam 0.25 MG TAB PO PRN (07:03)
[2019-10-31] MEDS ORDERED: ASPIRIN 81 MG ONE (07:12)
[2019-10-31 07:19] LABS: African American GFR (CKD) >90 (>60 ml/min/1.73 sqM); Anion Gap 6 mmol/L; Blood Urea Nitrogen 15 mg/dL (7-17); Calcium 9.7 mg/dL (8.4-10.2); Carbon Dioxide 22 mmol/L (22-30); Chloride 112 mmol/L (98-107); Glucose 106 mg/dL (74-99); Non-African American GFR(CKD) 78 (>60 ml/min/1.73 sqM); Potassium 4.2 mmol/L (3.5-5.1); Sodium 140 mmol/L (137-145)
[2019-10-31 07:37] LABS: Basophils # (A) 0.1 k/uL (0-0.2); Basophils % (A) 1 %; Eosinophils # (A) 0.4 k/uL (0-0.7); Eosinophils % (A) 6 %; HCT 45.6 % (34.0-46.0); HGB 15.1 gm/dL (11.4-16.0); Lymphocytes % (A) 29 %; MCH 31.8 pg (25.0-35.0); MCHC 33.1 g/dL (31.0-37.0); Mean Platelet Volume 9.2; Monocytes # (A) 0.4 k/uL (0-1.0); Monocytes % (A) 6 %; Neutrophils # (A) 3.7 k/uL (1.3-7.7); Neutrophils % (A) 55 %; Platelet Count 192 k/uL (150-450); RBC 4.75 m/uL (3.80-5.40); RDW 13.6 % (11.5-15.5); WBC 6.8 k/uL (3.8-10.6)
[2019-10-31] MEDS ORDERED: LIDOCAINE 1% INJ 10MG/ML (20 ML MDV) ONE ×2 (07:42→09:54)
[2019-10-31] MEDS ORDERED: MIDAZOLAM 2 MG/2 ML VIAL IV ONE (08:18)
[2019-10-31] MEDS ORDERED: LIDOCAINE 1% INJ 10MG/ML (20 ML MDV) SQ ONE ×2 (08:19→10:05)
[2019-10-31] MEDS ORDERED: IOPAMIDOL-370 125ML BTL INJ ONE ×2 (08:38→10:28)
[2019-10-31] MEDS ORDERED: RX INFO: IV CONTRAST WAS GIVEN 1 EACH MISC MISCELLANE PRN ×2 (08:44→10:29)
[2019-10-31] MEDS ORDERED: SODIUM CHLORIDE 0.9% 1,000 ML IV SCH ×2 (08:45→10:30)
[2019-10-31] MEDS ORDERED: IV FLUID CONTINUATION 500 ML IV ONE (09:54)
--- NOTE | 2019-10-31 10:00 | P.PCN ---
Date of Procedure: 10/31/19 Operative Findings: CARDIAC CATHETERIZATION AND PERCUTANEOUS CORONARY INTERVENTION PERFORMING PHYSICIAN: Cody Dick MD, [facility] PROCEDURE PERFORMED: 1. Selective right and left coronary angiogram 2. VALENCIA to LAD angiogram 3. SVG to ramus intermedius angiogram 4. SVG to RCA angiogram 5. Successful stenting of the distal protected left main/proximal LCX using 2.75 x 12 mm Xience CYNTHIA with an excellent angiographic results and reduction of stenosis from 80% to 0% and without any compromising flow to the left anterior descending artery 6. Left heart catheterization INDICATION: This is a very pleasant 64-year-old female patient who sees Dr. Saha in the office as an outpatient with coronary artery disease and prior coronary artery that was grafting in 2007 was performed at [facility] where the patient received VALENCIA into LAD, SVG to ramus intermedius, and SVG to RCA. Recently she was diagnosed with a stroke. Also recently she was diagnosed with cardiac arrhythmia in the term of ventricular arrhythmia with PVCs as well as ventricular bigeminy and also SVT. Myocardial perfusion imaging stress test was performed and revealed mild to moderate reversible defect involving the lateral/inferolateral wall of the left ventricle. Because of that a heart catheterization was advised COMPLICATION: None APPROACH: Right and left common femoral artery LEVEL OF SEDATION: Moderate with sedation length of 47 minutes PROCEDURE DESCRIPTION: After obtaining an informed consent, the patient was brought to cardiac sanitation laborer. Local anesthesia was performed using lidocaine subcutaneously. The right common femoral artery was cannulated using Seldinger technique, the guidewire passed easily, following that we advanced a 6 Tajik sheath dilator assembly, the wire and dilator were removed and sheath was flushed. Selective right and left coronary angiogram using a 6-Tajik JR4 and JL catheters. VALENCIA to LAD angiogram was performed using the JR4 catheter. SVG to ramus intermedius angiogram was performed also using the JR4 catheter. SVG to RCA als o was performed using the JR4 catheter. Following that we did left heart catheterization using 6-Tajik pigtail catheter. The procedure was completed there was no complication. SELECTIVE CORONARY ANGIOGRAM: The right coronary artery: Is chronically occluded in the proximal portion. Left main: Calcified with a lesion distally appears to be in the range of 80%. The lesion involves the ostial LAD and LCx The left circumflex: The ostial LCx is involved in the lesion from the left main and appears to be disease in the range of 80%. THE RAMUS INTERMEDIUS: Also is involved in the lesion from the left main. The ostial ramus also has a lesion appeared to be in the range of 80% The left anterior descending artery: The ostial LAD has a lesion appeared to be in the range of 80%. The mid LAD appeared to be angiographically normal. CORONARY BYPASSES ANGIOGRAM; The VALENCIA to LAD: is patent The SVG to ramus intermedius: is patent The SVG to RCA: is patent The LCx itself which is a medium to large caliber vessel and its and protected by any bypass PCI OF THE LEFT MAIN/LCX: The left circumflex itself which is a medium to large caliber vessel appears to be an protected. The ischemia on the stress test was in the distribution of the left circumflex coronary artery. Initially I advised maximize medical treatment but after I spoke with Dr. Saha on the phone, we decided to pursue with a PCI of the left circumflex which could be the source of the patient's cardiac arrhythmia. Anticoagulation was initiated using Angiomax. The left main was engaged using an XB 3 guide. I advanced an 014 whisper J-wire across the left main to the left circumflex coronary artery were the wire was parked in the distal left circumflex. Subsequently I did balloon angioplasty using 2.0 by 12 mm balloon which was inflated under 12 irma for 20 seconds. After that I did advance 2.75 x 12 mm Xience CYNTHIA where the stent was positioned under fluoroscopy guidance as well and deployed under 14 irma for 20 seconds. I postdilated the stent using 3.0 mm noncompliant balloon which was inflated under 20 irma for 30 seconds. The final angiogram showed an excellent angiographic results with reduction of stenosis from 80% to 0% and without any compromising flow in the left anterior descending artery and with an excellent flow in the left circumflex coronary artery. HEMODYNAMICS: The LVEDP was 10-12 mmHg without significant gradient across aortic valve CONCLUSION: 1. Severe triple-vessel coronary artery disease 2. Patent VALENCIA to LAD 3. Patent SVG to ramus intermedius 4. Patent SVG to RCA 5. Successful stenting of an protected left circumflex (LCX) with an excellent angiographic results. POSTPROCEDURE MANAGEMENT: 1. Dual antiplatelet therapy 2. Risk factors modifications 3. Standard groin care 4. Follow-up with the patient
[2019-10-31] MEDS ORDERED: PRASUGREL 10 MG TAB ONE (10:02)
[2019-10-31] MEDS ORDERED: PRASUGREL 10 MG TAB PO ONE (10:05)
[2019-10-31] MEDS: MIDAZOLAM 2 MG/2 ML VIAL IVP ONE ×2 (10:05→10:20)
[2019-10-31] MEDS ORDERED: BIVALIRUDIN 250 MG in SODIUM CHLORIDE 0.9% 50 ML IV ONE (10:12)
[2019-10-31] MEDS ORDERED: BIVALIRUDIN BOLUS 250 MG/50 ML IV ONE (10:12)
[2019-10-31] MEDS ORDERED: MAG HYDROX/AL HYDROX/SIMETH 30 ML CUP PO PRN (10:29)
[2019-10-31] MEDS ORDERED: ZOLPIDEM 5 MG TAB PO PRN (10:29)
[2019-10-31] MEDS ORDERED: ATROPINE SULFATE 0.1 MG/ML 10ML SYRINGE IV PRN (10:29)
[2019-10-31 14:50] VITALS: RESP 16
[2019-10-31] MEDS: CARVEDILOL 12.5 MG TAB PO SCH (17:11)
[2019-10-31] MEDS: LISINOPRIL 20 MG TAB PO SCH (20:23)
[2019-10-31] MEDS ORDERED: ATORVASTATIN 80 MG TAB PO SCH (21:00)
[2019-11-01 06:29] LABS: Basophils # (A) 0.1 k/uL (0-0.2); Basophils % (A) 1 %; Eosinophils # (A) 0.3 k/uL (0-0.7); Eosinophils % (A) 4 %; HCT 41.6 % (34.0-46.0); HGB 13.5 gm/dL (11.4-16.0); Lymphocytes # (A) 1.5 k/uL (1.0-4.8); Lymphocytes % (A) 20 %; MCH 31.5 pg (25.0-35.0); MCHC 32.5 g/dL (31.0-37.0); MCV 96.7 fL (80.0-100.0); Mean Platelet Volume 8.9; Monocytes # (A) 0.4 k/uL (0-1.0); Monocytes % (A) 5 %; Neutrophils # (A) 4.9 k/uL (1.3-7.7); Neutrophils % (A) 68 %; Platelet Count 163 k/uL (150-450); RDW 13.6 % (11.5-15.5); WBC 7.3 k/uL (3.8-10.6)
[2019-11-01] MEDS: CARVEDILOL 12.5 MG TAB PO SCH (06:40)
[2019-11-01 06:41] LABS: African American GFR (CKD) >90 (>60 ml/min/1.73 sqM); Anion Gap 5 mmol/L; Blood Urea Nitrogen 12 mg/dL (7-17); Calcium 8.9 mg/dL (8.4-10.2); Carbon Dioxide 21 mmol/L (22-30); Chloride 112 mmol/L (98-107); Glucose 121 mg/dL (74-99); Non-African American GFR(CKD) >90 (>60 ml/min/1.73 sqM); Potassium 3.8 mmol/L (3.5-5.1); Sodium 138 mmol/L (137-145)
[2019-11-01 07:40] VITALS: BP 132/62; PULSE 61; TEMP 97.5
--- NOTE | 2019-11-01 08:08 | P.DS ---
Providers Date of admission: October 302019 Attending physician: Cody Dick Consults: 10/31/19 10:30 Consult Physician Routine Consulting Provider: [facility] Consult Reason/Comments: Post Interventional patient Do you want consulting provider notified?: Already Contacted Primary care physician: Ander Pacheco [facility] Course: This is a 64-year-old female patient with coronary artery disease and status post CABG as well as hypertension and dyslipidemia who was diagnosed recently also with a stroke, was seen recently and follow-up on regular basis with Dr. Benitez in the office. She was experiencing cardiac arrhythmia in the term of SVT as well as bradycardia. The patient underwent myocardial perfusion imaging stress test and that revealed mild to moderate lateral ischemia. Because of.heart catheterization was advised. The heart catheterization revealed severe triple-vessel CAD with patent VALENCIA to LAD, patent SVG to ramus intermedius, and patent SVG to RCA. The ostial left circumflex is tight and the left circumflex itself is not protected. Because of that I did perform successful angioplasty and stenting of the distal left main to the proximal left circumflex with an excellent angiographic results and reduction of stenosis from 80% to 0% and without any complication. The patient was seen this morning. The groins are soft and nontender and without any bruises. The patient is going to be discharged home on dual antiplatelet therapy along with high intensity statin. She was advised about the importance of sticking to her dual antiplatelet therapy. Plan - Discharge Summary Discharge Rx Participant: No New Discharge Prescriptions: New Prasugrel [Effient] 10 mg PO DAILY #90 tab Continue Lisinopril [Prinivil] 20 mg PO BID Ergocalciferol (Vitamin D2) [Drisdol] 50,000 unit PO WE Hydrochlorothiazide [Hydrodiuril] 25 mg PO DAILY Carvedilol [Coreg] 12.5 mg PO AC-BID #60 tablet amLODIPine [Norvasc] 10 mg PO DAILY #30 tablet Ezetimibe [Zetia] 10 mg PO DAILY Rosuvastatin Calcium [Crestor] 40 mg PO HS Aspirin EC [Ecotrin] 81 mg PO DAILY Discharge Medication List Lisinopril [Prinivil] 20 mg PO BID 11/24/14 [History] Ergocalciferol (Vitamin D2) [Drisdol] 50,000 unit PO WE 08/28/19 [History] Hydrochlorothiazide [Hydrodiuril] 25 mg PO DAILY 08/28/19 [History] Carvedilol [Coreg] 12.5 mg PO AC-BID #60 tablet 08/30/19 [Rx] amLODIPine [Norvasc] 10 mg PO DAILY #30 tablet 08/30/19 [Rx] Aspirin EC [Ecotrin] 81 mg PO DAILY 10/26/19 [History] Ezetimibe [Zetia] 10 mg PO DAILY 10/26/19 [History] Rosuvastatin Calcium [Crestor] 40 mg PO HS 10/26/19 [History] Prasugrel [Effient] 10 mg PO DAILY #90 tab 11/01/19 [Rx] Follow up Appointment(s)/Referral(s): Alexander Saha MD [STAFF PHYSICIAN] - 1 Week Patient Instructions/Handouts: *Surgery [facility] - After Heart Catheterization - [facility] Instructions, Left Heart Catheterization (DC), Heart Healthy Diet (DC)
[2019-11-01 08:20] VITALS: BMI 27.8
[2019-11-01] MEDS ORDERED: ASPIRIN 81 MG PO SCH (09:00)
[2019-11-01] MEDS ORDERED: EZETIMIBE 10 MG TAB PO SCH (09:00)
[2019-11-01] MEDS ORDERED: amLODIPine 10 MG TAB PO SCH (09:00)
[2019-11-01] MEDS ORDERED: HYDROCHLOROTHIAZIDE 25 MG TAB PO SCH (09:00)
[2019-11-01] MEDS: LISINOPRIL 20 MG TAB PO SCH (09:38)
[2019-11-01] MEDS ORDERED: PRASUGREL 10 MG TAB PO SCH (10:30)
[2019-11-02] MEDS ORDERED: ERGOCALCIFEROL 50,000 UNIT CAP PO SCH (09:00)
== END 2019-11-01 10:53 | disposition home or self-care (01) ==
LOC: CATHCVL 06:32 → 3SCARD 14:09 → CATHCVL 11-01 10:53
PROVIDERS: ATTEND Internal Medicine Interventional Cardiology
DX: I25.10 Atherosclerotic heart disease of native coronary artery without angina pectoris (principal); I25.84 Coronary atherosclerosis due to calcified coronary lesion; I25.82 Chronic total occlusion of coronary artery; Z95.1 Presence of aortocoronary bypass graft; Z86.73 Personal history of transient ischemic attack (TIA), and cerebral infarction without residual deficits; I49.3 Ventricular premature depolarization; I47.1 Supraventricular tachycardia; R94.39 Abnormal result of other cardiovascular function study; I10 Essential (primary) hypertension; E78.5 Hyperlipidemia, unspecified; E78.00 Pure hypercholesterolemia, unspecified; F17.210 Nicotine dependence, cigarettes, uncomplicated; J44.9 Chronic obstructive pulmonary disease, unspecified; I25.2 Old myocardial infarction; Z98.890 Other specified postprocedural states; I65.23 Occlusion and stenosis of bilateral carotid arteries; Z82.49 Family history of ischemic heart disease and other diseases of the circulatory system; Z79.02 Long term (current) use of antithrombotics/antiplatelets; Z79.82 Long term (current) use of aspirin; Z79.899 Other long term (current) drug therapy
CPT/HCPCS: 93459; 80048 ×2; 85025 ×2; C9600; C1769 ×5; C1725 ×2; C1887; C1894; C1874; J2250; J2001; J0583; Q9967

== ENCOUNTER → 2020-08-16 | Day surgery (SDC) | payer BC, MEDICARE ==
[2020-08-15 08:31] VITALS: BMI 28.1
[~2020-08-16] MED LIST: LIDOCAINE 1% INJ 10MG/ML (20 ML MDV) ONE; LIDOCAINE 1% INJ 10MG/ML (20 ML MDV) SQ ONE; MIDAZOLAM 2 MG/2 ML VIAL IV ONE; SODIUM CHLORIDE 0.9% 1,000 ML IV SCH
[2020-08-16 06:55] VITALS: BP 160/63; PULSE 59; RESP 18; TEMP 98.1
--- NOTE | 2020-08-16 08:05 | P.EPPROC ---
- EP Procedure Note Electrophysiology Procedure Note: Diagnosis Suspected atrial fibrillation Loop monitor implant Primary physicians: Dr. emery Front Clerk: Dr. Saha Indication: Suspected A. fib Patient was brought to the EP lab in a fasting state. Written informed consent was obtained prior to the procedure. The left pectoral area was prepped and draped per protocol. Intravenous antibiotic was administered preoperatively. A subcutaneous Loop monitor was implanted successfully and the wound was closed per protocol. The device was programmed to detect significant capo- arrhythmic and tachy-arrhythmic events, per protocol. Device and programming details: Atrial fibrillation detection Patient underwent EP procedure under conscious sedation/moderate sedation, monitoring of the level of consciousness and physiologic parameters including but not limited to vital signs and oxygenation. Patient tolerated the procedure well without any acute complications. Start time: 747 Stop time: 872
--- NOTE | 2020-08-16 08:06 | P.PRLE ---
RE: Cristel Arenas Dear Dr. Tanya Fam underwent implantation of a loop monitor for suspected atrial fibrillation. She has runs of nonsustained atrial tachycardia. Presently she is not on any anticoagulants. She remains on antiplatelet therapy Thank you for entrusting me with the care of the patient Warm regards Sincerely Alexander Saha
== END | disposition home or self-care (01) ==
LOC: CATHEP 06:29
PROVIDERS: ATTEND Internal Medicine Clinical Cardiac Electrophysiology
DX: R42 Dizziness and giddiness (principal); I47.1 Supraventricular tachycardia; I25.10 Atherosclerotic heart disease of native coronary artery without angina pectoris; Z95.1 Presence of aortocoronary bypass graft; Z95.5 Presence of coronary angioplasty implant and graft; Z98.890 Other specified postprocedural states; I48.92 Unspecified atrial flutter; I25.2 Old myocardial infarction; Z79.02 Long term (current) use of antithrombotics/antiplatelets; Z79.82 Long term (current) use of aspirin; Z79.899 Other long term (current) drug therapy
CPT/HCPCS: 33285; C1764; J2250; J0690; J2001

== ENCOUNTER → 2021-07-11 | Outpatient (CLI) | payer MEDICARE, BC ==
[2021-07-11 15:54] LABS: African American GFR (CKD) >90 (>60 ml/min/1.73 sqM); Blood Urea Nitrogen 11 mg/dL (7-17); Non-African American GFR(CKD) >90 (>60 ml/min/1.73 sqM)
--- NOTE | 2021-07-12 08:34 | CT ---
EXAMINATION TYPE: CT angio neck DATE OF EXAM: 07/11/2021 HISTORY: right occlusion/ stenosis COMPARISON: CT neck August 28, 2019 CT DLP: 319.8 mGycm. Automated Exposure Control for Dose Reduction was Utilized. TECHNIQUE: CTA scan of the neck is performed with IV Contrast, patient injected with 65 mL of Isovue 370, axial images are obtained, coronal and sagittal reformatted images are reviewed. 3D reconstruct ed images are created on an independent workstation and reviewed. FINDINGS: Carotid/Vascular Structures: Moderate peripheral calcified plaque of the aortic arch redemonstrated. Moderate to severe mixed plaque left subclavian artery causing stenosis under 50% redemonstrated. Com plete occlusion of the left common carotid artery shortly after its origin is redemonstrated. Normal origin right common carotid artery from right brachiocephalic artery. Mild peripheral calcified plaqu e along course of right common carotid artery redemonstrated. Persistent moderate calcified plaque ri ght carotid bulb with significant stenosis at origin of the right external carotid artery redemonstra roldan more prominent from prior. No new significant stenosis in the tortuous right internal carotid art jono. Mild calcified plaque distally without significant stenosis. There are patent bilateral vertebral arteries with dominant right vertebral artery patent to the basi lar junction. Other: Moderate to severe underlying emphysematous change redemonstrated. There is new loop recorder in the anterior medial left upper thoracic chest wall. Mild to moderate disc space narrowing at the C5-C6 and C6-C7 levels redemonstrated. 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 No new significant stenosis in the rig ht common or internal carotid artery NASCET criteria was used in interpretation of this exam?
== END | disposition home or self-care (01) ==
LOC: RADCTMAIN 15:14
PROVIDERS: ATTEND Thoracic Surgery (Cardiothoracic Vascular Surgery)
DX: I65.21 Occlusion and stenosis of right carotid artery (principal)
CPT/HCPCS: 82565; 84520; 70498; 36415; Q9967

== ENCOUNTER → 2023-08-20 | Outpatient (CLI) | payer MEDICARE, BC ==
--- NOTE | 2023-08-20 09:23 | US ---
EXAMINATION TYPE: US renal artery duplex complet DATE OF EXAM: 08/20/2023 COMPARISON: NONE CLINICAL INDICATION: Female, 68 years old with history of Q27.1 RENAL ARTERY STENOSIS; HTN - controll ed MEASUREMENTS: RENAL SIZE: Right Kidney: 9.1 x 4.2 x 4.5 Left Kidney: 9.1 x 4.0 x 4.4 Right Kidney: ? Renal vs Liver lesions superior medial to kidney 1. 2.4 x 2.7 x 2.5 cm 2. 2.5 x 2.6 x 2.8 cm Left Kidney: wnl Abd Aorta: Dilated distally 3.8 x 2.6 x 2.0 cm RESISTANCE INDEX Right: 0.82 Left: 0.86 RA/AO RATIO (< 3.5 ) Right: 2.3 Left: 1.4 RENAL ARTERY VELOCITY ( < 180 cm/s) Right: 187 Left: 119 System Sales Consultant Notes: Incidental liver/renal lesions; Multiple calcifications in spleen IMPRESSION: 1. No evidence for renal artery stenosis. 2. 2 lesions adjacent to the right kidney unclear etiology further evaluation with cross-sectional i [facility] MRI renal mass protocol may be of benefit. 3. Abdominal aortic aneurysmal dilation up to 3.8 cm.
== END | disposition home or self-care (01) ==
LOC: RADUSWWP 07:43
PROVIDERS: ATTEND Internal Medicine Clinical Cardiac Electrophysiology
DX: I71.40 Abdominal aortic aneurysm, without rupture, unspecified (principal); Q27.1 Congenital renal artery stenosis; I10 Essential (primary) hypertension; N28.89 Other specified disorders of kidney and ureter
CPT/HCPCS: 93975

== ENCOUNTER → 2023-12-21 | Outpatient (CLI) | payer MEDICARE, BC ==
--- NOTE | 2023-12-21 19:42 | US ---
EXAMINATION TYPE: US carotid duplex BILAT DATE OF EXAM: 12/21/2023 COMPARISON: CT Angio neck 07/11/2021 CLINICAL INDICATION: Female, 68 years old with history of I65.23 OCCLUSION AND STENOSIS OF BILATERAL CAROTID; Known occlusion of left CCA TECHNIQUE: Carotid duplex ultrasound examination. Indirect Doppler criteria was utilized. FINDINGS: EXAM MEASUREMENTS: RIGHT: Peak Systolic Velocity (PSV) cm/sec ----- Right CCA: 61.0 ----- Right ICA: 197.6 ----- Right ECA: 15.3 ICA/CCA ratio: 3.2 RIGHT: End Diastole cm/sec ----- Right CCA: 20.9 ----- Right ICA: 52.7 ----- Right ECA: 0.0 LEFT: Peak Systolic Velocity (PSV) cm/sec ----- Left CCA: Occluded ----- Left ICA: Occluded ----- Left ECA: 102.1 ICA/CCA ratio: -- LEFT: End Diastole cm/sec ----- Left CCA: Occluded ----- Left ICA: Occluded ----- Left ECA: 0.0 VERTEBRALS (direction of flow): Right Vertebral: Antegrade Left Vertebral: Antegrade Rhythm: Normal [employer] NOTES: Heterogeneous plaque right carotid system with elevated velocities, Right ECA rosy re dampened flow Known left CCA occlusion, left ICA appeared occluded, left ECA possible retrograde flow IMPRESSION: 1. Moderate atherosclerotic plaque within the right carotid arterial system with approximately 50-69 % stenosis at the origin of the right internal carotid artery. Suggested high-grade stenosis involvin g the origin of the right ECA. 2. Redemonstration of known complete occlusion of the left common carotid artery and left internal c arotid artery. Retrograde flow within the left ECA. Criteria for Assigning % of Stenosis / Diameter reduction (Estimation based on the indirect measurements of the internal carotid artery velocities (ICA PSV). 1. Normal (no stenosis)=ICA PSV < 125 cm/s: ratio < 2.0: ICA EDV<40 cm/s. 2. Less than 50% stenosis=ICA PSV < 125 cm/s: ratio < 2.0: ICA EDV<40 cm/s. 3. 50 to 69% stenosis=ICA PSV of 125 to 230 cm/s: ration 2.0 ? 4.0: ICA EDV 40-100 cm/s. 4. Greater than 70% stenosis to near occlusion= ICA PSV > 230 cm/s: ratio > 4.0: ICA EDV > 100 cm/s. 5. Near occlusion= ICA PSV velocities may be low or undetectable: variable ratio and ICA EDV. 6. Total occlusion=unable to detect flow.
== END | disposition home or self-care (01) ==
LOC: RADUSWWP 14:53
PROVIDERS: ATTEND Internal Medicine Clinical Cardiac Electrophysiology
DX: I65.23 Occlusion and stenosis of bilateral carotid arteries (principal)
CPT/HCPCS: 93880